=== PATIENT | female | born 1940 | race Caucasian/White ===

== ENCOUNTER → 2021-01-23 17:31 | Outpatient (BNVA) | payer MEDICARE, BC, SELFPAY | PROVIDERS: PCP Family Medicine; Visit Provider Family Medicine | DX: E11.9 Type 2 diabetes mellitus without complications (principal); I10 Essential (primary) hypertension; E78.2 Mixed hyperlipidemia; E55.9 Vitamin D deficiency, unspecified | CPT/HCPCS: 80053; 80061; 82306; 83036; 84443; 85025 ==

== ENCOUNTER → 2023-05-09 18:00 | Outpatient (BNVA) | payer MEDICARE, BC, SELFPAY | PROVIDERS: PCP Family Medicine; Visit Provider Family Medicine | DX: I10 Essential (primary) hypertension (principal); E11.9 Type 2 diabetes mellitus without complications | CPT/HCPCS: 80053; 80061; 83036; 84443 ==

== ENCOUNTER 2023-07-08 23:21 | Observation (INO) | payer MEDICARE, BC, SELFPAY ==
[2023-07-08 23:26] VITALS: BP 115/74; PULSE 94; RESP 17; TEMP 36.8; O2SAT 94; BMI 26.2
--- NOTE | 2023-07-09 00:28 | CTR_ITS ---
PROCEDURE INFORMATION: Exam: CT Head Without Contrast Exam date and time: 07/09/2023 12:41 AM Age: 82 years old Clinical indication: Dizziness; Additional info: Headache, dizziness TECHNIQUE: Imaging protocol: Computed tomography of the head without contrast. Radiation optimization: All CT scans at this facility use at least one of these dose optimization techniques: automated exposure control; mA and/or kV adjustment per patient size (includes targeted exams where dose is matched to clinical indication); or iterative reconstruction. REPORTING DATA: Count of CT and Cardiac NM exams in prior 12 months: This patient has received 0 known CTs and 0 known cardiac nuclear medicine studies in the 12 months prior to the current study. COMPARISON: No relevant prior studies available. RADIATION DOSE METRICS: Total DLP (mGy-cm): 1033.38 FINDINGS: Brain: Left occipital lobe infarct with serpiginous hyperdensities within the infarction which may represent petechial hemorrhage. Subcortical and periventricular white matter changes consistent with small-vessel ischemic disease in the appropriate clinical setting. Small-vessel ischemic disease. Cerebral ventricles: No ventriculomegaly. Paranasal sinuses: Visualized sinuses are unremarkable. No fluid levels. Mastoid air cells: Visualized mastoid air cells are well aerated. Bones/joints: Unremarkable. No acute fracture. Soft tissues: Unremarkable. CT/CT head wo con* [id number] IMPRESSION: 1. Left occipital lobe infarct with serpiginous hyperdensities within the infarction which may represent petechial hemorrhage. 2. Small-vessel ischemic disease.
--- NOTE | 2023-07-09 00:30 | W.ED.AMS ---
HPI - Altered Mental Status General: Chief Complaint: Altered Mental Status Stated Complaint: stroke like symtoms Time Seen by Provider: 07/08/23 23:41 History of Present Illness: Patient presents to the ER with complaints of dizziness having spells and off-balance headaches. Patient said that her head hurts and is has been going on since Saturday of the night she cannot remember much patient states her parent had these headaches as well. Patient appeared to have a hard time describing her symptoms. As well as hold on a conversation in a logical manner. Review of Systems General: Reports: 10 or more systems reviewed and unremarkable except in HPI and below PFSH ED PFSH: Medical History Hyperlipemia Hypertension Type 2 diabetes mellitus Social History Smoking and tobacco status: never smoked Alcohol intake: never Substance/Drug Use: never Marital status: / Physical Exam Const: COMMON NORMALS: no acute distress, average body habitus, patient oriented x3, no limitations, healthy appearing, alert and well nourished HENMT: COMMON NORMALS: normocephalic, atraumatic, hearing grossly normal bilaterally, external ears normal, Normal external nose present, moist oral mucous membranes and oropharynx normal HEAD & SCALP: normocephalic and atraumatic NOSE: Normal external nose present EXTERNAL EAR: Yes external ears normal Eye: COMMON NORMALS: Equal, round and reactive pupils present, EOMs intact bilaterally, conjunctivae normal and no scleral icterus CONJUNCTIVA: Yes conjunctivae normal PUPIL: Yes Equal, round and reactive pupils present Neck/C-Spine: COMMON NORMALS: full ROM, no lymphadenopathy, supple, no meningeal signs, no JVD and Thyroid normal THYROID: Thyroid normal Lymph: LYMPHATIC: no lymphadenopathy noted Chest: COMMONS NORMALS: normal inspection of the chest and normal palpation of entire chest wall Resp: COMMON NORMALS: normal respiratory effort, No retractions, No use of accessory muscles and clear to auscultation bilaterally AUSCULTATION: clear to auscultation bilaterally Cardio: COMMON NORMALS: no JVD, regular rate, regular rhythm, S1 normal heart sound present, S2 normal heart sound present, No gallops present (Cardio), No clicks present (Cardio), No murmurs present (Cardio) and No rub (Cardio) RATE: regular rate RHYTHM: regular rhythm HEART SOUNDS: S1 normal heart sound present and S2 normal heart sound present GI: COMMON NORMALS: Normal to inspection, nondistended, normoactive bowel sounds present, Soft to palpation, non-tender, No hepatosplenomegaly present and no masses PALPATION: Yes Soft to palpation and Yes No hepatosplenomegaly present : COMMON NORMALS: Yes no CVA tenderness BLADDER/KIDNEY EXAM: Yes no CVA tenderness Back/Pelvis: COMMON NORMALS: no CVA tenderness Neuro: COMMON NORMALS: patient oriented x3 SENSORIUM/ORIENTATION: Yes alert MENINGEAL SIGNS: Yes no meningeal signs Course Vital Signs: Vital signs: Vital Signs Temperature 98.2 F 07/08/23 23:26 Pulse Rate 94 07/08/23 23:26 Respiratory Rate 17 07/08/23 23:26 Blood Pressure 115/74 07/08/23 23:26 Pulse Oximetry 94 07/08/23 23:26 Oxygen Delivery Me thod Room Air 07/08/23 23:26 MDM - Altered Mental Status Medical Decision Making Patient presents to the ER with dizziness spells and headache intermittently over the last couple days and multiple times before then. Patient was worked up with a EKG that showed atrial fibrillation patient is on [address] showed left occipital lobe infarct with possible petechial hemorrhage. Differential Diagnosis Likely altered mental status; Unlikely alcoholic intoxication, delirium, dementia, hypoglycemia, hyponatremia, subarachnoid hemorrhage or sepsis Medical Records I reviewed the patient's medical records. Lab Data I reviewed the patient's lab results. Radiology Impressions Head CT 07/09/23 00:28 IMPRESSION: 1. Left occipital lobe infarct with serpiginous hyperdensities within the infarction which may represent petechial hemorrhage. 2. Small-vessel ischemic disease. ADDENDUM: 07/09/23 0132 THIS REPORT CONTAINS FINDINGS THAT MAY BE CRITICAL TO PATIENT CARE. The findings were verbally communicated via telephone conference with Alpesh Jackson at 1:31 AM CDT on 07/09/2023. The findings were acknowledged and understood. Laboratory Results Urine Color Yellow (Yellow) 07/09/23 00:35 Urine Appearance Hazy (CLEAR) A 07/09/23 00:35 Urine pH 5 (5-7) 07/09/23 00:35 Ur Specific [place] 1.020 (1.005-1.030) 07/09/23 00:35 Urine Protein 1+ (Negative) H 07/09/23 00:35 Urine Glucose (UA) Norm (Normal) 07/09/23 00:35 Urine Ketones Negative (Negative) 07/09/23 00:35 Urine Blood Neg (Negative) 07/09/23 00:35 Urine Nitrate Negative (Negative) 07/09/23 00:35 Urine Bilirubin Neg (Negative) 07/09/23 00:35 Urine Urobilinogen 1 mg/dL (Negative) H 07/09/23 00:35 Ur Leukocyte Esterase Negative (Negative) 07/09/23 00:35 Urine RBC None /hpf (0-2) 07/09/23 00:35 Urine WBC None /hpf (0-5) 07/09/23 00:35 Ur Squamous Epith Cells 15-25 /hpf (0-5) H 07/09/23 00:35 Amorphous Sediment 1+ /hpf 07/09/23 00:35 Urine Bacteria 1+ /hpf (NONE) H 07/09/23 00:35 Urine Mucus 2+ /hpf 07/09/23 00:35 All radiology interpretation(s) finalized by discharge EKG Data EKG 1: I personally reviewed and interpreted this EKG as follows: EKG interpretation date: 07/09/23 EKG interpretation time: 01:27 Prior EKG tracings: not available for review Interpretation: EKG showed ventricular rate 77 bpm, QRS duration 100, QTc of 405, atrial fibrillation, right incomplete bundle branch block. Discharge Plan Discharge Patient Disposition: Placed in Observation Clinical Impression: Occipital stroke Altered mental status Qualifiers: Altered mental status type: unspecified Qualified Code(s): R41.82 - Altered mental status, unspecified Atrial fibrillation Qualifiers: Atrial fibrillation type: unspecified Qualified Code(s): I48.91 - Unspecified atrial fibrillation Coding Level of Care Code ED [employer] for [facility]
[2023-07-09 01:09] LABS: Add Urine Culture? No; Add Urine Microscopic? YES; Amorphous Sediment Urine 1+ /hpf; Bacteria Urine 1+ /hpf; Bilirubin Urine Neg (Negative); Blood Urine Neg (Negative); Glucose Urine UA Norm (Normal); Ketones Urine Negative (Negative); Leukocyte Esterase Urine Negative (Negative); Mucus Urine 2+ /hpf; Nitrate Urine Negative (Negative); Protein Urine 1+ (Negative); Squamous Epithelial Cell Urine 15-25 /hpf (0-5); Urine Appearance Hazy (CLEAR); Urine Color Yellow (Yellow); Urobilinogen Urine 1 mg/dL (Negative); pH Urine 5 (5-7)
--- NOTE | 2023-07-09 01:25 | ECG_ITS ---
[facility] Test Date: 2023-07-09 Pat Name: Adri Gonzalez Department: Room: Gender: Female Graduate Recruiter: : 1940 Requested By: Alpesh Major Order Number: [id number] Raven MD: Nahum Magallanes M.D. Measurements Intervals [place] Rate: 87 P: 0 MI: 0 QRS: 73 QRSD: 97 T: 63 QT: 341 QTc: 412 Interpretive Statements ATRIAL FIBRILLATION WITH ABERRANT CONDUCTION OR VENTRICULAR PREMATURE COMPLEXES INCOMPLETE RIGHT BUNDLE BRANCH BLOCK [90+ ms QRS DURATION, TERMINAL R IN V1/V2, 40+ ms S IN I/aVL/V4/V5/V6] NONSPECIFIC T-WAVE ABNORMALITY No previous ECG available for comparison Electronically Signed On 07-09-2023 9:14:57 CDT by Nahum Magallanes M.D. [email or web address]
[2023-07-09 02:00] VITALS: BP 117/77; PULSE 71; RESP 16; O2SAT 96
[2023-07-09 02:04] LABS: Erythrocyte Sedimentation Rate 4 mm/hr (0-15)
[2023-07-09 02:05] LABS: Basophils # 0.1 10^3/uL (0.0-0.1); Basophils % 0.8 %; Eosinophils # 0.2 10^3/uL (0.0-0.8); Eosinophils % 1.5 %; Hematocrit 48.7 % (36-47); Lymphocytes # 2.9 10^3/uL (0.8-4.8); Mean Corpuscular HGB Conc 33.9 g/dL (30-55); Mean Corpuscular Hemoglobin 31.7 pg (27-33); Mean Corpuscular Volume 93.5 fl (85-98); Mean Platelet Volume 9.5 fL (7.4-10.4); Monocytes # 0.9 10^3/uL (0.2-0.9); Monocytes % 7.9 %; Neutrophils # 7.03 10^3/uL (1.8-7.7); Neutrophils % 63.5 %; Nucleated Red Blood Cells % 0 %; Platelet Count 250 10^3/cmm (157-399); Red Blood Count 5.21 10^6/uL (3.85-5.65); Red Cell Distribution Width 12.3 % (12.1-15.1); White Blood Count 11.08 10^3/uL (3.29-11.43)
[2023-07-09 02:16] LABS: Alanine Aminotransferase 15 U/L (0-33); Albumin Level 4.4 g/dL (3.5-5.2); Alkaline Phosphatase 97 U/L (35-105); Anion Gap 16.4 (5-19); Aspartate Amino Transferase 19 U/L (0-32); Blood Urea Nitrogen 22 mg/dL (8-23); Calcium 9.6 mg/dL (8.5-10.5); Carbon Dioxide 29 mmol/L (22-29); Chloride 93 mmol/L (98-107); Globulin 3.6 g/dL (1.3-4.6); Glucose 163 mg/dL (65-115); Magnesium 1.9 mg/dL (1.7-2.3); Osmolality Calculated 287 mOsm/kg (285-295); Potassium 3.4 mmol/L (3.5-5.1); Sodium 135 mmol/L (136-145); Total Bilirubin 0.7 mg/dL (0.15-1.2)
[2023-07-09 02:41] VITALS: BP 117/77; PULSE 71; RESP 16; TEMP 36.8; O2SAT 96
[2023-07-09 03:00] VITALS: BP 108/75; PULSE 76; RESP 17; TEMP 36.4; O2SAT 93
--- NOTE | 2023-07-09 03:48 | PM.HP ---
Providers/Chief Complaint Admitting Physician: Shahida David MD Primary Care Provider: Yeni Pimentel MD Chief Complaint: stroke like symtoms History of Present Illness Adri Gonzalez is a 82 year old female with history of hypertension diabetes presented with complaint of headache and feeling funky /dizzy spells for 2 days. She denied any fever cold cough chest pain shortness of breath urinary or bowel complaints. No history of sick contacts or recent travel. In the ER she was found to have left occipital infarct with minimal hemorrhage of unknown duration on CT head as per the radiologist. Review of Systems Narrative: As per HPI Medications/Allergies Home Medications Medication Instructions Recorded Confirmed Last Taken Type aspirin 81 mg tablet,delayed 81 mg PO DAILY 03/10/20 10/07/22 Unknown History release (Adult Low Dose Aspirin) blood sugar diagnostic (Blood #50 ea 01/17/22 10/07/22 Unknown Rx Glucose Test strips) blood-glucose meter #1 ea 01/17/22 10/07/22 Unknown Rx empagliflozin 10 mg tablet 10 mg PO QAM #90 tabs 01/17/22 10/07/22 Unknown Rx (Jardiance) lancets 30 gauge (Advanced Travel #100 ea 01/17/22 10/07/22 Unknown Rx Lancets) amlodipine 5 mg tablet See Rx Instructions .Route 05/09/23 05/09/23 Unknown Rx .COMPLEX #30 tabs hydrochlorothiazide 25 mg tablet See Rx Instructions .Route 05/09/23 05/09/23 Unknown Rx .COMPLEX #30 tabs losartan 100 mg tablet See Rx Instructions .Route 05/09/23 05/09/23 Unknown Rx .COMPLEX #30 tabs metformin 500 mg tablet,extended See Rx Instructions .Route 05/09/23 05/09/23 Unknown Rx release 24 hr .COMPLEX #120 tabs metoprolol succinate 50 mg See Rx Instructions .Route 05/09/23 05/09/23 Unknown Rx tablet,extended release 24 hr .COMPLEX #30 tabs Allergies Allergy/AdvReac Type Severity Reaction Status Date / Time No Known Allergies Allergy Verified 05/09/23 16:14 PFSH Acute PFSH: Medical History Hyperlipemia Hypertension Type 2 diabetes mellitus Social History Smoking and tobacco status: never smoked Alcohol intake: never Substance/Drug Use: never Marital status: / Vitals/I&O/Wt Last Vital Signs Temp 98.2 F 07/09/23 02:41 Pulse 71 07/09/23 02:41 Resp 16 07/09/23 02:41 BP 117/77 07/09/23 02:41 Pulse Ox 96 07/09/23 02:41 O2 Del Method Room Air 07/09/23 03:00 Weight last 48 hrs Weight 75.75 kg Physical Exam Narrative: She is alert awake oriented x3 not in acute distress Chest clear to auscultation bilaterally Cardiovascular normal heart sounds Abdomen NAD Extremities trace bilateral edema present Neurological exam normal Data 07/09/23 01:47 07/09/23 01:47 CT Head: Radiologist's impression: IMPRESSION: 1. ? Left occipital lobe infarct with serpiginous hyperdensities within the infarction which may represent petechial hemorrhage. 2. ? Small-vessel ischemic disease. EKG 1: Administrative Processor Interpretation: ATRIAL FIBRILLATION WITH ABERRANT CONDUCTION OR VENTRICULAR PREMATURE COMPLEXES INCOMPLETE RIGHT BUNDLE BRANCH BLOCK? [90+ ms QRS DURATION, TERMINAL R IN V1/V2, 40+ ms S IN I/aVL/V4/V5/V6] NONSPECIFIC T-WAVE ABNORMALITY ABNORMAL RHYTHM ECG A&P Assessment and plan (1) Cerebrovascular accident: (2) Headache: Plan 82-year-old female with history of hypertension diabetes presented with complaint of feeling funky and headache since 2 days and found to have left occipital infarct on CT head. Admit for observation Neurology consult in a.m. Continue aspirin 81 mg for now Resume home medications IV Pepcid 20 mg every 12 hours for stress ulcer prophylaxis Intermittent compression stockings for DVT prophylaxis She is full code for now Attestations Medical Necessity Statement*: She is here for observation and neurology consult for left occipital infarct of unknown duration Time Spent in Patient Care: 30 minutes Coding Level of Care Code Acute Code for [facility] Fwd Diagnoses Cerebrovascular accident I63.9 Headache R51.9 Time Spent (min) 30
[2023-07-09] MEDS: sodium chloride 0.9% 1,000 ML 60 ML IV (05:14)
[2023-07-09] MEDS: famotidine 20 mg/2 mL INJ IVP (05:14)
[2023-07-09 07:45] VITALS: BP 97/63; PULSE 71; RESP 20; TEMP 36.1; O2SAT 96
--- NOTE | 2023-07-09 08:29 | PC.PHAR ---
pt states she takes care of her own medications-pt states she is still taking metformin er 500mg 2 tabs bid ext shows last filled 05/09/23 30d/s
--- NOTE | 2023-07-09 10:50 | P.DS_ITS ---
Discharge Providers Date of Admission: 07/09/23 01:53 Date of Discharge: July 09, 2023 Attending Provider at Admission: Shahida David MD Attending Provider at Discharge: Shahida David MD Primary Care Provider: Yeni Pimentel MD Diagnoses at Discharge Discharge Diagnosis (1) Cerebrovascular accident: Status: Acute (2) Headache: Status: Acute Reason for Visit Reason for Visit: stroke like symtoms Hospital Course Hospital Course 82-year female who presented from home in the ER she was diagnosed with left occipital lobe infarct with petechial hemorrhage small vessel ischemic changes, patient has not suffered from any focal deficit, she is able to walk, no dysarthria, she is able to swallow without any difficulty she will get prescription to get physical therapy outpatient Currently on consistent carb diet She is not a candidate to be on aspirin, discontinue antihypertensive regimen. Physical Exam Narrative: Awake and alert Nonfocal neuro exam Pleasant and cooperative S1, S2 doing Well on room air Abdomen is soft Discharge Data Studies Completed and Pending Completed Studies During Hospitalization Category Date Time Status CT head wo con* [id number] Stat Cat Scan 07/09/23 00:28 Completed Pending at discharge Category Date Time Status Complete Blood Count w/Auto AM LABS Lab 07/10/23 04:00 Ordered Comprehensive Metabolic Panel AM LABS Lab 07/10/23 04:00 Ordered Magnesium AM LABS Lab 07/10/23 04:00 Ordered Phosphorus AM LABS Lab 07/10/23 04:00 Ordered Radiology Impressions Head CT 07/09/23 00:28 IMPRESSION: 1. Left occipital lobe infarct with serpiginous hyperdensities within the infarction which may represent petechial hemorrhage. 2. Small-vessel ischemic disease. ADDENDUM: 07/09/23 0132 THIS REPORT CONTAINS FINDINGS THAT MAY BE CRITICAL TO PATIENT CARE. The findings were verbally communicated via telephone conference with Alpesh Jackson at 1:31 AM CDT on 07/09/2023. The findings were acknowledged and understood. Laboratory Results WBC 11.08 10^3/uL (3.29-11.43) 07/09/23 01:47 RBC 5.21 10^6/uL (3.85-5.65) 07/09/23 01:47 Hgb 16.50 g/dL (11.27-16.99) 07/09/23 01:47 Hct 48.7 % (36-47) H 07/09/23 01:47 MCV 93.5 fl (85-98) 07/09/23 01:47 MCH 31.7 pg (27-33) 07/09/23 01:47 MCHC 33.9 g/dL (30-55) 07/09/23 01:47 RDW 12.3 % (12.1-15.1) 07/09/23 01:47 Plt Count 250 10^3/cmm (157-399) 07/09/23 01:47 MPV 9.5 fL (7.4-10.4) 07/09/23 01:47 Neut % (Auto) 63.5 % 07/09/23 01:47 Lymph % (Auto) 26.0 % 07/09/23 01:47 [place] % (Auto) 7.9 % 07/09/23 01:47 Eos % (Auto) 1.5 % 07/09/23 01:47 Baso % (Auto) 0.8 % 07/09/23 01:47 Neut # (Auto) 7.03 10^3/uL (1.8-7.7) 07/09/23 01:47 Lymph # (Auto) 2.9 10^3/uL (0.8-4.8) 07/09/23 01:47 [place] # (Auto) 0.9 10^3/uL (0.2-0.9) 07/09/23 01:47 Eos # (Auto) 0.2 10^3/uL (0.0-0.8) 07/09/23 01:47 Baso # (Auto) 0.1 10^3/uL (0.0-0.1) 07/09/23 01:47 Nucleated RBC % (auto) 0 % 07/09/23 01:47 Nucleated RBCs # 0.0 /100WBC 07/09/23 01:47 ESR 4 mm/hr (0-15) 07/09/23 01:47 Sodium 135 mmol/L (136-145) L 07/09/23 01:47 Potassium 3.4 mmol/L (3.5-5.1) L 07/09/23 01:47 Chloride 93 mmol/L (98-107) L 07/09/23 01:47 Carbon Dioxide 29 mmol/L (22-29) 07/09/23 01:47 Anion Gap 16.4 (5-19) 07/09/23 01:47 BUN 22 mg/dL (8-23) 07/09/23 01:47 Creatinine 1.1 mg/dL (0.5-0.9) H 07/09/23 01:47 GFR Calculation Not Reportable 07/09/23 01:47 Glucose 163 mg/dL (65-115) H 07/09/23 01:47 Calculated Osmolality 287 mOsm/kg (285-295) 07/09/23 01:47 Calcium 9.6 mg/dL (8.5-10.5) 07/09/23 01:47 Magnesium 1.9 mg/dL (1.7-2.3) 07/09/23 01:47 Total Bilirubin 0.7 mg/dL (0.15-1.2) 07/09/23 01:47 AST 19 U/L (0-32) 07/09/23 01:47 ALT 15 U/L (0-33) 07/09/23 01:47 Alkaline Phosphatase 97 U/L (35-105) 07/09/23 01:47 C-Reactive Protein 3.0 mg/L (0.0-4.9) 07/09/23 01:47 Total Protein 8.0 g/dL (6.6-8.7) 07/09/23 01:47 Albumin 4.4 g/dL (3.5-5.2) 07/09/23 01:47 Globulin 3.6 g/dL (1.3-4.6) 07/09/23 01:47 Urine Color Yellow (Yellow) 07/09/23 00:35 Urine Appearance Hazy (CLEAR) A 07/09/23 00:35 Urine pH 5 (5-7) 07/09/23 00:35 Ur Specific [place] 1.020 (1.005-1.030) 07/09/23 00:35 Urine Protein 1+ (Negative) H 07/09/23 00:35 Urine Glucose (UA) Norm (Normal) 07/09/23 00:35 Urine Ketones Negative (Negative) 07/09/23 00:35 Urine Blood Neg (Negative) 07/09/23 00:35 Urine Nitrate Negative (Negative) 07/09/23 00:35 Urine Bilirubin Neg (Negative) 07/09/23 00:35 Urine Urobilinogen 1 mg/dL (Negative) H 07/09/23 00:35 Ur Leukocyte Esterase Negative (Negative) 07/09/23 00:35 Urine RBC None /hpf (0-2) 07/09/23 00:35 Urine WBC None /hpf (0-5) 07/09/23 00:35 Ur Squamous Epith Cells 15-25 /hpf (0-5) H 07/09/23 00:35 Amorphous Sediment 1+ /hpf 07/09/23 00:35 Urine Bacteria 1+ /hpf (NONE) H 07/09/23 00:35 Urine Mucus 2+ /hpf 07/09/23 00:35 Vitals Last Vital Signs Temp 97.0 F L 07/09/23 07:45 Pulse 71 07/09/23 07:45 Resp 20 H 07/09/23 07:45 BP 97/63 07/09/23 07:45 Pulse Ox 96 07/09/23 07:45 O2 Del Method Room Air 07/09/23 07:45 Discharge Plan Discharge Patient Disposition: Home Condition: Stable Prescriptions: Continued (DME) blood-glucose meter Misc See Rx Instructions .Route Qty: 1 0RF Rx Instructions: As directed (DME) lancets [Advanced Travel Lancets] 30 gauge misc See Rx Instructions .Route Qty: 100 1RF Rx Instructions: As directed (DME) Blood Glucose Test Strip See Rx Instructions .Route Qty: 50 2RF Rx Instructions: As directed metoprolol succinate 50 mg tablet extended release 24 hr 50 mg PO DAILY Held amlodipine 5 mg tablet 5 mg PO QAM Hold Instructions: Resume on 07/15/23. hydrochlorothiazide 25 mg tablet 25 mg PO QAM Hold Instructions: Resume on 07/13/23. losartan 100 mg tablet 100 mg PO QAM Hold Instructions: Resume on 07/13/23. Discontinued aspirin [Adult Low Dose Aspirin] 81 mg tablet,delayed release (DR/EC) 81 mg PO QAM metformin 500 mg tablet extended release 24 hr 1,000 mg PO BID Discharge Orders: Discharge Order (Routine); Ordered 07/09/23 Ordered By: Caitie Peterson Other Ambulatory Orders: Physical Therapy Eval and Treat Outpatient (Order) Timeframe: 3 Weeks Facility: [facility] - Location: Physical Therapy Ordered By: Caitie Peterson Referrals: Nasir Garnett MD [Physician] - 2 weeks Yeni Pimentel MD [Primary Care Provider] - Discharge Diet: Cardiac Discharge Activity: As per PT/OT instructions Patient Instructions: Stroke (GEN), Opioid Safety, Stroke Stoplight Discharge Attestations Time Spent in Discharge Care*: greater than 30 min Quality Metrics Clinical Quality Measures [ No reported AMI, CVA or VTE this stay] Coding Level of Care Code Acute Code for [facility] Fwd Diagnoses Cerebrovascular accident I63.9 Headache R51.9
--- NOTE | 2023-07-09 11:35 | PC.NURSE ---
Notified Arnold patient was being discharged. Arnold stated would be here in one hour.
--- NOTE | 2023-07-09 11:59 | PC.NURSE ---
Discussed discharge paperwork with patient, follow up appointments with calling after two business days if patient has not heard anything from clinics. Discussed and circled discontinued medications. Underlined held medications and discussed resume dates. Patient verbalized understading and will let son know upon arrival to pick patient up.
[2023-07-09 12:00] VITALS: BP 107/67; PULSE 70; RESP 18; TEMP 36.5; O2SAT 93
[2023-07-09 12:19] LABS: Estmated Average Glucose 192; Hemoglobin A1C 8.3 % (4.0-6.0)
[2023-07-09 13:54] VITALS: BP 107/67; PULSE 70; RESP 18; TEMP 36.5; O2SAT 93
== END 2023-07-09 11:55 | disposition home or self-care (01) ==
LOC: ER 07-09 01:53 → MEDSURG 07-09 02:21
PROVIDERS: Internal Medicine; Admitting Provider Internal Medicine; Emergency Provider Emergency Medicine; PCP Family Medicine; Visit Provider Internal Medicine
DX: I63.9 Cerebral infarction, unspecified (principal); R51.9 Headache, unspecified; Z79.82 Long term (current) use of aspirin; E78.5 Hyperlipidemia, unspecified; I10 Essential (primary) hypertension; E11.9 Type 2 diabetes mellitus without complications; I45.10 Unspecified right bundle-branch block
CPT/HCPCS: 36415; 70450; 80053; 81001; 83036; 83735; 85025; 85651; 86140; 93005; 96361; 96374; 99285; G0378; J3490; J7030

== ENCOUNTER 2023-07-25 06:00 | Outpatient (RCR) | payer MEDICARE, BC, SELFPAY | END 2023-07-30 23:59 | disposition home or self-care (01) | LOC: TPT 06:00 | PROVIDERS: PCP Family Medicine; Visit Provider Internal Medicine | DX: I63.9 Cerebral infarction, unspecified (principal) | CPT/HCPCS: 97163 ==

== ENCOUNTER → 2023-11-21 08:29 | Outpatient (BNVA) | payer MEDICARE, BC, SELFPAY | PROVIDERS: PCP Family Medicine; Visit Provider Nurse Practitioner Family | DX: R50.9 Fever, unspecified (principal) | CPT/HCPCS: 81003; 87400; 87426 ==

== ENCOUNTER → 2023-11-25 10:58 | Outpatient (BNVA) | payer MEDICARE, BC, SELFPAY | PROVIDERS: PCP Family Medicine; Visit Provider Nurse Practitioner Family | DX: I34.1 Nonrheumatic mitral (valve) prolapse (principal); R60.0 Localized edema; E11.9 Type 2 diabetes mellitus without complications; E55.9 Vitamin D deficiency, unspecified | CPT/HCPCS: 80053; 82306; 82607; 83036; 83735; 83880; 84443; 85025 ==

== ENCOUNTER 2024-04-04 04:46 | Emergency (ER) | payer MEDICARE, BC, SELFPAY ==
[2024-04-04 04:47] VITALS: BP 133/87; PULSE 98; RESP 20; TEMP 36.6; O2SAT 90; BMI 25.0
[2024-04-04 04:56] VITALS: BP 133/87; PULSE 77; RESP 16; O2SAT 98
[2024-04-04 05:05] LABS: Basophils # 0.1 10^3/uL (0.0-0.1); Basophils % 0.7 %; Eosinophils # 0.4 10^3/uL (0.0-0.8); Eosinophils % 4.3 %; Hematocrit 39.3 % (36-47); Lymphocytes % 19.5 %; Mean Corpuscular HGB Conc 34.1 g/dL (30-55); Mean Corpuscular Hemoglobin 30.9 pg (27-33); Mean Corpuscular Volume 90.8 fl (85-98); Mean Platelet Volume 11.4 fL (7.4-10.4); Monocytes # 0.9 10^3/uL (0.2-0.9); Monocytes % 8.4 %; Neutrophils # 6.73 10^3/uL (1.8-7.7); Neutrophils % 66.4 %; Nucleated Red Blood Cells % 0 %; Platelet Count 204 10^3/cmm (157-399); Red Blood Count 4.33 10^6/uL (3.85-5.65); Red Cell Distribution Width 12.7 % (12.1-15.1); White Blood Count 10.14 10^3/uL (3.29-11.43)
[2024-04-04 05:14] LABS: Ketone (Acetest) Serum Negative (Negative)
--- NOTE | 2024-04-04 05:14 | XRR_ITS ---
PROCEDURE INFORMATION: Exam: XR Abdomen Exam date and time: 04/04/2024 5:18 AM Age: 83 years old Clinical indication: Bloating; Abdominal pain; Generalized; Patient HX: C/O diffuse abd pain with distention; Additional info: Abd distension TECHNIQUE: Imaging protocol: Radiologic exam of the abdomen. Views: Frontal supine view of the abdomen. 1 View. COMPARISON: No relevant prior studies available. FINDINGS: Gastrointestinal tract: No dilated loops of large or small bowel is appreciated. There is a moderate amount of stool within the colon. No pathologic calcifications are appreciated. Bones/joints: There is a scoliotic curvature convex left. There are degenerative changes involving the spine. XR/XR abdomen 1V* [id number] IMPRESSION: 1. Fecal stasis.
--- NOTE | 2024-04-04 05:27 | ED_ITS ---
HPI - Abdominal Pain 2 General: Chief Complaint: Abdominal Pain Stated Complaint: hyperglycemia Time Seen by Provider: 04/04/24 05:08 History of Present Illness: Patient presents to the ER with a complaint of a blood sugar of greater than 500 and abdominal distention. Patient says her abdominal abdomen is not hurting. But her blood sugar has been high. Patient was arrived by ambulance and they reported a blood sugar greater than 500 after they gave her 600 mL normal saline. Patient is a wev-mkuccka-fnygrdbmd diabetic. Patient says she has no problems with her bowels and goes to the bathroom every day. Patient does admit to being bloated. Patient has no other complaints at this time. Review of Systems 2 General: Reports: 10 or more systems reviewed and unremarkable except in HPI and below PFSH ED 2 PFSH: Medical History MVP (mitral valve prolapse) Headache Cerebrovascular accident Atrial fibrillation Altered mental status Occipital stroke Type 2 diabetes mellitus Hyperlipemia Hypertension Social History Smoking and tobacco/nicotine status: never used tobacco/nicotine Alcohol intake: never Substance/Drug Use: never Marital status: / Physical Exam 2 Const: COMMON NORMALS: no acute distress, average body habitus, patient oriented x3, no limitations, healthy appearing, alert and well nourished HENMT: COMMON NORMALS: normocephalic, atraumatic, hearing grossly normal bilaterally, external ears normal, Normal external nose present and moist oral mucous membranes HEAD & SCALP: normocephalic and atraumatic NOSE: Normal external nose present EXTERNAL EAR: Yes external ears normal Neck/C-Spine: COMMON NORMALS: no JVD Chest: COMMONS NORMALS: normal inspection of the chest and normal palpation of entire chest wall Resp: COMMON NORMALS: normal respiratory effort, No retractions, No use of accessory muscles and clear to auscultation bilaterally AUSCULTATION: clear to auscultation bilaterally Cardio: COMMON NORMALS: no JVD, S1 normal heart sound present, S2 normal heart sound present, No gallops present (Cardio), No clicks present (Cardio), No murmurs present (Cardio) and No rub (Cardio); negative for regular rhythm (Irregularly irregular) RHYTHM: abnormal rhythm (Irregularly irregular) HEART SOUNDS: S1 normal heart sound present and S2 normal heart sound present GI: COMMON NORMALS: Soft to palpation, non-tender, No hepatosplenomegaly present and no masses; negative for Normal to inspection, nondistended, normoactive bowel sounds present (Mildly distended soft normal active bowel sounds) PALPATION: Yes Soft to palpation and Yes No hepatosplenomegaly present Neuro: COMMON NORMALS: patient oriented x3 SENSORIUM/ORIENTATION: Yes alert Course 2 Vital Signs: Vital signs: Vital Signs Temperature 97.8 F 04/04/24 04:47 Pulse Rate 84 04/04/24 10:09 Respiratory Rate 18 04/04/24 12:44 Blood Pressure 106/72 04/04/24 07:55 Pulse Oximetry 94 04/04/24 10:09 Oxygen Delivery Me thod Room Air 04/04/24 10:09 Oxygen Flow Rate 2 04/04/24 04:56 MDM - Abdominal Pain Medical Decision Making Patient presented to the ER in with hyperglycemia was resolving using IV insulin fluid. Abdomen x-ray showed fecal stasis, white count was normal, blood glucose improved down to 313, BNP was slightly high at 1623, urine showed 4+ glucose, patient care transferred over to Dr. Zimmerman at shift change Differential Diagnosis Likely abdominal pain Medical Records I reviewed the patient's medical records. Lab Data I reviewed the patient's lab results. 04/04/24 04:53 04/04/24 04:53 Labs/Radiology: Radiology Impressions Abdomen X-Ray 04/04/24 05:14 IMPRESSION: 1. Fecal stasis. Laboratory Results WBC 10.14 10^3/uL (3.29-11.43) 04/04/24 04:53 RBC 4.33 10^6/uL (3.85-5.65) 04/04/24 04:53 Hgb 13.40 g/dL (11.27-16.99) 04/04/24 04:53 Hct 39.3 % (36-47) 04/04/24 04:53 MCV 90.8 fl (85-98) 04/04/24 04:53 MCH 30.9 pg (27-33) 04/04/24 04:53 MCHC 34.1 g/dL (30-55) 04/04/24 04:53 RDW 12.7 % (12.1-15.1) 04/04/24 04:53 Plt Count 204 10^3/cmm (157-399) 04/04/24 04:53 MPV 11.4 fL (7.4-10.4) H 04/04/24 04:53 Neut % (Auto) 66.4 % 04/04/24 04:53 Lymph % (Auto) 19.5 % 04/04/24 04:53 [place] % (Auto) 8.4 % 04/04/24 04:53 Eos % (Auto) 4.3 % 04/04/24 04:53 Baso % (Auto) 0.7 % 04/04/24 04:53 Neut # (Auto) 6.73 10^3/uL (1.8-7.7) 04/04/24 04:53 Lymph # (Auto) 2.0 10^3/uL (0.8-4.8) 04/04/24 04:53 [place] # (Auto) 0.9 10^3/uL (0.2-0.9) 04/04/24 04:53 Eos # (Auto) 0.4 10^3/uL (0.0-0.8) 04/04/24 04:53 Baso # (Auto) 0.1 10^3/uL (0.0-0.1) 04/04/24 04:53 Nucleated RBC % (auto) 0 % 04/04/24 04:53 Nucleated RBCs # 0.0 /100WBC 04/04/24 04:53 Sodium 127 mmol/L (136-145) L 04/04/24 04:53 Potassium 4.5 mmol/L (3.5-5.1) 04/04/24 04:53 Chloride 89 mmol/L (98-107) L 04/04/24 04:53 Carbon Dioxide 24 mmol/L (22-29) 04/04/24 04:53 Anion Gap 18.5 (5-19) 04/04/24 04:53 BUN 34 mg/dL (8-23) H 04/04/24 04:53 Creatinine 1.4 mg/dL (0.5-0.9) H 04/04/24 04:53 GFR Calculation Not Reportable 04/04/24 04:53 Glucose 560 mg/dL (65-115) H* 04/04/24 04:53 POC Glucose 313 mg/dL (70-110) H 04/04/24 11:32 Calculated Osmolality 297 mOsm/kg (285-295) H 04/04/24 04:53 Calcium 8.7 mg/dL (8.5-10.5) 04/04/24 04:53 Magnesium 2.1 mg/dL (1.7-2.3) 04/04/24 04:53 Total Bilirubin 0.4 mg/dL (0.15-1.2) 04/04/24 04:53 AST 20 U/L (0-32) 04/04/24 04:53 ALT 18 U/L (0-33) 04/04/24 04:53 Alkaline Phosphatase 104 U/L (35-105) 04/04/24 04:53 NT-Pro-B Natriuret Pep 1623 pg/mL (0-450) H 04/04/24 04:53 Total Protein 7.1 g/dL (6.6-8.7) 04/04/24 04:53 Albumin 3.5 g/dL (3.5-5.2) 04/04/24 04:53 Globulin 3.6 g/dL (1.3-4.6) 04/04/24 04:53 Lipase 42 U/L (13-60) 04/04/24 04:53 Urine Color Yellow (Yellow) 04/04/24 06:19 Urine Appearance Clear (CLEAR) 04/04/24 06:19 Urine pH 5 (5-7) 04/04/24 06:19 Ur Specific [place] 1.010 (1.005-1.030) 04/04/24 06:19 Urine Protein Neg (Negative) 04/04/24 06:19 Urine Glucose (UA) 4+ (Normal) H 04/04/24 06:19 Urine Ketones Negative (Negative) 04/04/24 06:19 Urine Blood Neg (Negative) 04/04/24 06:19 Urine Nitrate Negative (Negative) 04/04/24 06:19 Urine Bilirubin Neg (Negative) 04/04/24 06:19 Urine Urobilinogen Norm mg/dL (Negative) 04/04/24 06:19 Ur Leukocyte Esterase Negative (Negative) 04/04/24 06:19 Serum Ketones Negative (Negative) 04/04/24 04:53 All radiology interpretation(s) finalized by discharge Discharge Plan Discharge Patient Disposition: Home Clinical Impression: Constipation, Acute hyperglycemia Type 2 diabetes mellitus Qualifiers: 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: without residential use Diabetes mellitus complication status: without complication Qualified Code(s): E11.9 - Type 2 diabetes mellitus without complications Condition: Stable Prescriptions: New Miralax 17 gram powder in packet 17 g PO PRN Qty: 30 0RF No Action (DME) blood-glucose meter Misc See Rx Instructions .Route Qty: 1 0RF Rx Instructions: As directed (DME) lancets [Advanced Travel Lancets] 30 gauge misc See Rx Instructions .Route Qty: 100 1RF Rx Instructions: As directed (DME) Blood Glucose Test Strip See Rx Instructions .Route Qty: 50 2RF Rx Instructions: As directed sulfamethoxazole-trimethoprim [Bactrim DS] 800-160 mg tablet 1 tab PO BID 10 Days Qty: 20 0RF mupirocin calcium 2 % cream 1 applic topical TID Qty: 30 1RF tizanidine 2 mg tablet See Rx Instructions .ROUTE .COMPLEX Qty: 30 0RF Dose Instruction: TAKE ONE TABLET BY MOUTH TWICE DAILY NEEDED FOR muscle spasticity Rx Instructions: TAKE ONE TABLET BY MOUTH TWICE DAILY NEEDED FOR muscle spasticity triamterene-hydrochlorothiazid 37.5-25 mg tablet See Rx Instructions .ROUTE .COMPLEX Qty: 30 2RF Dose Instruction: TAKE ONE TABLET BY MOUTH EVERY MORNING Rx Instructions: TAKE ONE TABLET BY MOUTH EVERY MORNING potassium chloride 10 mEq capsule, extended release See Rx Instructions .ROUTE .COMPLEX Qty: 60 1RF Dose Instruction: TAKE TWO CAPSULES BY MOUTH DAILY Rx Instructions: TAKE TWO CAPSULES BY MOUTH DAILY furosemide 40 mg tablet See Rx Instructions .ROUTE .COMPLEX Qty: 30 2RF Dose Instruction: TAKE ONE TABLET BY MOUTH EVERY MORNING; needs appt FOR further refills Rx Instructions: TAKE ONE TABLET BY MOUTH EVERY MORNING; prn sitagliptin phosphate 50 mg tablet See Rx Instructions .ROUTE .COMPLEX Qty: 30 2RF Dose Instruction: TAKE ONE TABLET BY MOUTH DAILY Rx Instructions: TAKE ONE TABLET BY MOUTH DAILY metoprolol succinate 50 mg tablet extended release 24 hr 50 mg PO DAILY Qty: 30 2RF amlodipine 5 mg tablet 5 mg PO QAM Hold Instructions: Resume on 07/15/23. losartan 100 mg tablet 100 mg PO QAM Hold Instructions: Resume on 07/13/23. Discharge Orders: Discharge ED (Routine); Ordered 04/04/24 Ordered By: Catrina Zimmerman Referrals: Yeni Pimentel MD [Primary Care Provider] - Discharge Diet: Advance as tolerated Discharge Activity: Increase activity as tolerated Patient Instructions: Opioid Safety, Pain Management Activity Restrictions/Additional Instructions: ke sure to take your medications as prescribed. Use the Miralax up to three doses a day for the next 1 - 2 days - until you feel like you have relieved the constipation. After that, you can use it as needed if constipation returns. Coding Level of Care Code ED Pattern Filer for Bishop Carey
[2024-04-04 05:32] LABS: Alanine Aminotransferase 18 U/L (0-33); Albumin Level 3.5 g/dL (3.5-5.2); Alkaline Phosphatase 104 U/L (35-105); Anion Gap 18.5 (5-19); Aspartate Amino Transferase 20 U/L (0-32); Blood Urea Nitrogen 34 mg/dL (8-23); Calcium 8.7 mg/dL (8.5-10.5); Carbon Dioxide 24 mmol/L (22-29); Chloride 89 mmol/L (98-107); Creatinine Clr Calc Pharmacy 32.2749; Globulin 3.6 g/dL (1.3-4.6); Lipase 42 U/L (13-60); Magnesium 2.1 mg/dL (1.7-2.3); NT Pro B Type Natriuretic Pept 1623 pg/mL (0-450); Osmolality Calculated 297 mOsm/kg (285-295); Potassium 4.5 mmol/L (3.5-5.1); Sodium 127 mmol/L (136-145); Total Bilirubin 0.4 mg/dL (0.15-1.2); Total Protein 7.1 g/dL (6.6-8.7)
[2024-04-04 05:35] LABS: Glucose 560 mg/dL (65-115)
[2024-04-04] MEDS: insulin regular-human 100 units/1 mL 10 UNIT IVP ×2 (06:06→07:50)
[2024-04-04 06:14] VITALS: BP 109/69; PULSE 85; RESP 18; O2SAT 94
[2024-04-04 06:26] LABS: Add Urine Microscopic? NO; Charge for UA Resulting for Rev
[2024-04-04 06:37] LABS: Bilirubin Urine Neg (Negative); Blood Urine Neg (Negative); Glucose Urine UA 4+ (Normal); Ketones Urine Negative (Negative); Nitrate Urine Negative (Negative); Protein Urine Neg (Negative); Urine Appearance Clear (CLEAR); Urine Color Yellow (Yellow); pH Urine 5 (5-7)
[2024-04-04 06:38] LABS: Leukocyte Esterase Urine Negative (Negative); Urobilinogen Urine Norm (Negative)
[2024-04-04 07:11] LABS: Glucose Point of Care 385 mg/dL (70-110)
--- NOTE | 2024-04-04 07:11 | PC.NURSE ---
Glucose via Fingerstick @0777: 385; Dr. Zimmerman notified
[2024-04-04 07:55] VITALS: BP 106/72; PULSE 86; O2SAT 96
[2024-04-04 07:55] LABS: Glucose Point of Care 395 mg/dL (70-110)
--- NOTE | 2024-04-04 09:09 | PC.NURSE ---
Glucose via Fingerstick: 354
[2024-04-04 09:41] LABS: Glucose Point of Care 354 mg/dL (70-110)
--- NOTE | 2024-04-04 09:59 | PC.NURSE ---
Pt glucose via fingerstick: 274 @[id number]
[2024-04-04 10:01] LABS: Glucose Point of Care 274 mg/dL (70-110)
[2024-04-04] MEDS: sitagliptin 100 mg Tablet 25 MG PO (10:05)
[2024-04-04 10:09] VITALS: PULSE 84; O2SAT 94
--- NOTE | 2024-04-04 11:32 | PC.NURSE ---
Glucose via fingerstick: 313
[2024-04-04 11:35] LABS: Glucose Point of Care 313 mg/dL (70-110)
[2024-04-04 12:44] VITALS: RESP 18
--- NOTE | 2024-04-04 12:58 | PC.NURSE ---
this nurse called in Miralax prescription per Dr. Zimmerman to [facility] in [place] per family/pt request.
== END 2024-04-04 12:45 | disposition home or self-care (01) ==
PROVIDERS: Emergency Medicine; Emergency Provider Emergency Medicine; PCP Family Medicine
DX: K59.00 Constipation, unspecified (principal); E11.65 Type 2 diabetes mellitus with hyperglycemia; I10 Essential (primary) hypertension; E78.5 Hyperlipidemia, unspecified; I48.91 Unspecified atrial fibrillation; Z79.899 Other long term (current) drug therapy; Z86.73 Personal history of transient ischemic attack (TIA), and cerebral infarction without residual deficits
CPT/HCPCS: 36416; 74018; 80053; 81003; 82009; 82962; 83690; 83735; 83880; 85025; 96374; 96376; 99284; J1815

== ENCOUNTER → 2024-05-04 14:32 | Outpatient (BNVA) | payer MEDICARE, BC, SELFPAY | PROVIDERS: PCP Family Medicine; Visit Provider Podiatrist Foot & Ankle Surgery | DX: L60.3 Nail dystrophy (principal); G62.9 Polyneuropathy, unspecified; R60.0 Localized edema; E11.42 Type 2 diabetes mellitus with diabetic polyneuropathy | CPT/HCPCS: 11721; 99203 ==

== ENCOUNTER → 2024-05-05 14:23 | Outpatient (BNVA) | payer MEDICARE, BC, SELFPAY | PROVIDERS: PCP Family Medicine; Visit Provider Nurse Practitioner Family | DX: E11.9 Type 2 diabetes mellitus without complications (principal) | CPT/HCPCS: 80053; 80061; 82607; 83036; 83735; 84443; 85025 ==

== ENCOUNTER → 2024-10-29 09:51 | Outpatient (BNVA) | payer MEDICARE, BC, SELFPAY | PROVIDERS: PCP Nurse Practitioner Family; Visit Provider Nurse Practitioner Family | DX: E55.9 Vitamin D deficiency, unspecified (principal); E11.9 Type 2 diabetes mellitus without complications; I10 Essential (primary) hypertension | CPT/HCPCS: 80053; 80061; 81003; 82306; 82607; 83036; 84443; 85025; 87086 ==

== ENCOUNTER → 2025-01-12 15:27 | Outpatient (BNVA) | payer MEDICARE, BC, SELFPAY | PROVIDERS: PCP Nurse Practitioner Family; Visit Provider Nurse Practitioner Family | DX: S21.209A Unspecified open wound of unspecified back wall of thorax without penetration into thoracic cavity, initial encounter (principal); X58.XXXA Exposure to other specified factors, initial encounter | CPT/HCPCS: 87070; 87075; 87205 ==

== ENCOUNTER → 2025-01-20 08:14 | Outpatient (BNVA) | payer MEDICARE, BC, SELFPAY | PROVIDERS: PCP Nurse Practitioner Family; Visit Provider Thoracic Surgery (Cardiothoracic Vascular Surgery) | DX: I96 Gangrene, not elsewhere classified (principal); L98.421 Non-pressure chronic ulcer of back limited to breakdown of skin | CPT/HCPCS: 97597; 99203 ==

== ENCOUNTER → 2025-01-29 11:30 | Outpatient (BNVA) | payer MEDICARE, BC, SELFPAY | PROVIDERS: PCP Nurse Practitioner Family; Visit Provider Nurse Practitioner Family | DX: E11.9 Type 2 diabetes mellitus without complications (principal); Z79.899 Other long term (current) drug therapy | CPT/HCPCS: 80053; 80061; 82306; 83036; 85025 ==

== ENCOUNTER → 2025-02-02 12:13 | Outpatient (BNVA) | payer MEDICARE, BC, SELFPAY | PROVIDERS: PCP Nurse Practitioner Family; Referring Provider Nurse Practitioner Family; Visit Provider Internal Medicine | DX: E11.9 Type 2 diabetes mellitus without complications (principal) | CPT/HCPCS: 36415; 82947; 84681; 86337; 86341 ==

== ENCOUNTER 2025-06-06 22:07 | Emergency (ER) | payer MEDICARE, BC, SELFPAY ==
--- OUTSIDE RECORDS SUMMARY | 2025-06-06 22:15 | XMS_ITS | Clinical Summary ---
Author Organization [facility] Address [address] [place] [address] Phone Care Team Providers Care Principal Java Developer Name Role Phone Unavailable Primary Care Provider Unavailabl e Social History Tobacco Use Types Packs/Day Years Used Date Smoking Tobacco: Never Assessed Comments Unknown Sex and Gender Information Value Date Recorded Sex Assigned at Not on file Legal Sex Female 3:44 PM PEARL HAND Gender Identity Not on file Sexual Orientation Not on file Plan of Treatment Health Maintenance Due Date Last Done Comments Annual Depression Screening 1951 Pneumococcal Vaccine Age 50+ (1 of 1 - PCV) 1991 Bone Density 2006 RSV Immunization Pa tients or 60+ Years (1 - 1-dose 75+ series) 2016 Flu Vaccine (#1) 05/31/2025 Influenza Vaccine 05/31/2025
[2025-06-06 22:18] VITALS: BP 96/58; PULSE 78; RESP 16; TEMP 36.4; O2SAT 93; BMI 23.5
--- NOTE | 2025-06-07 00:12 | XRR_ITS ---
PROCEDURE INFORMATION: Exam: XR Right Foot Exam date and time: 06/07/2025 12:20 AM Age: 84 years old Clinical indication: Injury or trauma; Other: Right great toenail coming off; Wound; Toes; Foreign body involvement not specified; Additional info: Toenail injury TECHNIQUE: Imaging protocol: Radiologic exam of the right foot. Views: 3 or more views. COMPARISON: No relevant prior studies available. FINDINGS: Bones/joints: Calcaneal spurs are noted. No acute fracture. No osseous erosions. The bones appear osteopenic. Soft tissues: Moderate soft tissue edema of the dorsal foot is present. XR/XR foot RT min 3V* 36039 IMPRESSION: 1. No acute osseous abnormality. 2. Suggested osteopenia. 3. Moderate soft tissue edema of the dorsal foot. Correlate for soft tissue infection or other systemic source.
[2025-06-07 01:21] VITALS: BP 123/64; PULSE 65; O2SAT 91
[2025-06-07 01:36] LABS: Glucose Urine UA 3+ (Normal); Nitrate Urine Negative (Negative); Specific Gravity, Urine 1.016 (1.005-1.030)
--- NOTE | 2025-06-07 01:36 | ED_ITS ---
HPI - Skin/Abscess/Foreign Bdy 2 General: Chief complaint: Skin/Abscess/Foreign Body Stated complaint: Cut on RT Toe\Spider Bite on Back Time Seen by Provider: 06/07/25 00:11 History of Present Illness: Patient is a 84-year-old female with DM, last hemoglobin A1c in January is 17.7, HTN, presents to the emergency room where she had a hanging skin to her right toe, started to tear off, and noted that she had a large skin care. She was first checking her ingrown toenail, that I do not appreciate at bedside, when she started to pull the skin. She has a small black area to her big toe medially. As well, patient was seen by her doctor a few days ago for what she believed was a spider bite to her back. She was diagnosed with some type of spider bite at that time. She has not been placed on antibiotics, and it has an occasional white draining area. Associated symptoms: Deny chills, fever(s), nausea or vomiting Related Data Previous Rx's ?Medication ?Instructions ?Recorded lancets 30 gauge #100 ea 05/20/24 flash glucose sensor (FreeStyle #1 ea 02/01/25 Moe 14 Day Sensor kit) pen needle, diabetic 31 gauge x #1,200 ea 02/02/2512/13 (TRUEplus Pen Needle) furosemide 40 mg tablet See Rx Instructions .Route 0 02/26/25 .COMPLEX #30 tabs triamterene 37.5 See Rx Instructions .Route 0 02/26/25 mg-hydrochlorothiazide 25 mg tablet .COMPLEX #30 tabs insulin aspart U-100 100 unit/mL See Rx Instructions S UBCUT TID #15 03/23/25 (3 mL) subcutaneous pen (Novolog mL FlexPen U-100 Insulin aspart) insulin glargine 100 unit/mL (3 12 unit (0.12 mL) SUBC UT QAM #3 mL 03/23/25 mL) subcutaneous pen (Lantus Solostar U-100 Insulin) furosemide 40 mg tablet (Lasix) See Rx Instructions PO .COMPLEX 04/16/25 #10 tabs potassium chloride 10 mEq See Rx Instructions .Route 0 04/16/25 capsule,extended release .COMPLEX #60 caps ergocalciferol (vitamin D2) 1,250 See Rx Instructions .Route 07/28/25 mcg (50,000 unit) capsule .COMPLEX #12 caps metoprolol succinate 50 mg See Rx Instructions .Route 05/28/25 tablet,extended release 24 hr .COMPLEX #30 tabs doxycycline hyclate 100 mg capsule 100 mg PO BID 14 da ys #28 caps 06/07/25 Allergies Allergy/AdvReac Type Severity Reaction Status Date / Time No Known Allergies Allergy Verified 06/06/25 22:25 Review of Systems 2 General: Reports: 10 or more systems reviewed and unremarkable except in HPI and below Const: Denies: fever(s) or chills Eyes: Denies: change in vision or blurry vision ENMT: Denies: throat pain or mouth pain Card: Denies: chest pain or palpitations Resp: Denies: dyspnea or non-productive cough GI: Denies: abdominal pain, nausea or vomiting Musc: Denies: neck pain, back pain, extremity pain, joint pain or joint swelling Skin/Breast: Denies: rash or pruritus Neuro: Denies: headache(s), numbness in extremities, weakness in extremities, sensory changes or lack of coordination Psych: Denies: anxiety or depression PFSH ED 2 PFSH: Medical History (Updated 06/07/25 @ 01:41 by ELISEO Walls) Enrolled in chronic care management MVP (mitral valve prolapse) Headache Cerebrovascular accident Atrial fibrillation Altered mental status Occipital stroke Type 2 diabetes mellitus Hyperlipemia Hypertension Social History Smoking and tobacco/nicotine status: never used tobacco/nicotine Alcohol intake: never Substance/Drug Use: never Marital status: / Physical Exam 2 Const: COMMON NORMALS: no acute distress, average body habitus and patient oriented x3 HENMT: COMMON NORMALS: normocephalic and atraumatic HEAD & SCALP: n ormocephalic and atraumatic Eye: COMMON NORMALS: Equal, round and reactive pupils present and EOMs intact bilaterally PUPIL: Yes Equal, round and reactive pupils present Neck/C-Spine: COMMON NORMALS: full ROM and no lymphadenopathy Lymph: LYMPHATIC: no lymphadenopathy noted Chest: COMMONS NORMALS: normal inspection of the chest Cardio: COMMON NORMALS: regular rate and regular rhythm RATE: regular rate RHYTHM: regular rhythm GI: COMMON NORMALS: Normal to inspection, nondistended, normoactive bowel sounds present : COMMON NORMALS: Yes no CVA tenderness BLADDER/KIDNEY EXAM: Yes no CVA tenderness Back/Pelvis: COMMON NORMALS: no CVA tenderness Extremity: COMMON NORMALS: full ROM and capillary refill normal OTHER: Skin flap noted on plantar right big toe medially without surrounding redness or drainage. Back is noted as a small amount of induration that is not amendable to draining given the location, and the look of this wound. It is appropriate however for antibiotics. Neuro: COMMON NORMALS: patient oriented x3 Skin: SKIN IMAGES (FEMALE): 1. superficial white, red, with only mild induration Course 2 Vital Signs: Vital signs: Vital Signs Temperature 97.5 F L 06/06/25 22:18 Pulse Rate 97 06/07/25 02:22 Respiratory Rate 16 06/07/25 02:22 Blood Pressure 123/100 06/07/25 02:22 Pulse Oximetry 92 06/07/25 02:22 Oxygen Delivery Me thod Room Air 06/07/25 01:21 MDM - Skin/Abscess/Foreign Bdy Medicial Decision Making Patient is a diabetic foot wound from where she cut her foot and was unaware of it, started to pull the extra skin, and appeared to cause more damage. There was not any destruction of the bone to that right foot big toe, therefore we will treat with antibiotics, and send to wound care. As far as her left side of her back, this area is not amicable to drainage. Will place her on antibiotics with her toe and have wound care follow-up. I am unsure if this is a spider/insect bite at this time, but did discuss her uncontrolled blood glucose and association of increased, which patient understand Lab Data Radiology Impressions Foot X-Ray 06/07/25 00:12 IMPRESSION: 1. No acute osseous abnormality. 2. Suggested osteopenia. 3. Moderate soft tissue edema of the dorsal foot. Correlate for soft tissue infection or other systemic source. Laboratory Results Urine Color Yellow (Yellow) 06/07/25 00:30 Urine Appearance Clear (CLEAR) 06/07/25 00:30 Urine pH 5.5 (5-7) 06/07/25 00:30 Ur Specific [place] 1.016 (1.005-1.030) 06/07/25 00:30 Urine Protein Negative (Negative) 06/07/25 00:30 Urine Glucose (UA) 3+ (Normal) H 06/07/25 00:30 Urine Ketones Negative (Negative) 06/07/25 00:30 Urine Blood Negative (Negative) 06/07/25 00:30 Urine Nitrate Negative (Negative) 06/07/25 00:30 Urine Bilirubin Negative (Negative) 06/07/25 00:30 Urine Urobilinogen 1.0 mg/dL (Negative) 06/07/25 00:30 Ur Leukocyte Esterase Negative (Negative) 06/07/25 00:30 Urine RBC 0-2 /hpf (0-2) 06/07/25 00:30 Urine WBC 0-5 /hpf (0-5) 06/07/25 00:30 Ur Squamous Epith Cells 0-5 /hpf (0-5) 06/07/25 00:30 Amorphous Sediment Not Reportable 06/07/25 00:30 Urine Bacteria None seen /hpf (NONE) 06/07/25 00:30 Hyaline Casts 0.40 /lpf 06/07/25 00:30 All radiology interpretation(s) finalized by discharge Discharge Plan Discharge Patient Disposition: Home Clinical Impression: Back abscess Puncture wound of great toe of right foot Qualifiers: Encounter type: initial encounter Qualified Code(s): S91.131A - Puncture wound without foreign body of right great toe without damage to nail, initial encounter Condition: Stable Prescriptions: New doxycycline hyclate 100 mg capsule 100 mg PO BID 14 Days Qty: 28 0RF No Action (DME) FreeStyle Moe 14 Day Sensor Kit See Rx Instructions .Route Qty: 1 12RF Rx Instructions: check blood sugar four daily and as needed furosemide [Lasix] 40 mg tablet See Rx Instructions PO .COMPLEX Qty: 10 0RF Rx Instructions: take TWO tablets in the AM orally; always take with a potassium tablet. potassium chloride 10 mEq capsule, extended release See Rx Instructions .ROUTE .COMPLEX Qty: 60 2RF Dose Instruction: TAKE TWO CAPSULES BY MOUTH DAILY Rx Instructions: TAKE TWO CAPSULES BY MOUTH DAILY (DME) lancets 30 gauge misc See Rx Instructions .Route Qty: 100 1RF Rx Instructions: As directed (DME) pen needle, diabetic [TRUEplus Pen Needle] 31 gauge x 3/16 needle See Rx Instructions .Route Qty: 1200 0RF Rx Instructions: test 4 times a day furosemide 40 mg tablet See Rx Instructions .ROUTE .COMPLEX Qty: 30 2RF Dose Instruction: TAKE ONE TABLET BY MOUTH EVERY MORNING; needs appt FOR further refills Rx Instructions: TAKE ONE TABLET BY MOUTH EVERY MORNING; prn triamterene-hydrochlorothiazid 37.5-25 mg tablet See Rx Instructions .ROUTE .COMPLEX Qty: 30 2RF Dose Instruction: TAKE ONE TABLET BY MOUTH EVERY MORNING Rx Instructions: TAKE ONE TABLET BY MOUTH EVERY MORNING insulin aspart U-100 [Novolog FlexPen U-100 Insulin] 100 unit/mL (3 mL) insulin pen See Rx Instructions SUBCUT TID Qty: 15 3RF Rx Instructions: check blood sugar before meals TID and administer per sliding scale subcutaneously 150-200: 3 units 201-250: 5 units 251-300: 7 units 301-350: 9 units 351 or higher: 11 units insulin glargine [Lantus Solostar U-100 Insulin] 100 unit/mL (3 mL) insulin pen 12 unit SUBCUT QAM Qty: 3 3RF ergocalciferol (vitamin D2) 1,250 mcg (50,000 unit) capsule See Rx Instructions .ROUTE .COMPLEX Qty: 12 0RF Dose Instruction: TAKE ONE CAPSULE BY MOUTH ONCE a WEEK Rx Instructions: TAKE ONE CAPSULE BY MOUTH ONCE a WEEK metoprolol succinate 50 mg tablet extended release 24 hr See Rx Instructions .ROUTE .COMPLEX Qty: 30 0RF Dose Instruction: TAKE 1 TABLET BY MOUTH DAILY Rx Instructions: TAKE 1 TABLET BY MOUTH DAILY Discharge Orders: Discharge ED (Routine); Ordered 06/07/25 Ordered By: Amada Santoro Referrals: Mari Birch FNP [Primary Care Provider, Family Practice] Discharge Diet: Diabetic Patient Instructions: Abscess (ED), Puncture Wound in the Foot (ED), Patient Portal & Damir Instructions Activity Restrictions/Additional Instructions: You will need to follow-up with wound care. I have made a consultation for case management to call you for follow-up to your right big toe, and your back. Doxycycline, the antibiotic you received here has been sent to pharmacy. Obtain early in the morning and start early. This must be taken with food or will cause nausea. Make sure you utilize a probiotic or daily culture active yogurt to avoid infectious diarrhea You still had glucose in your urine but no infection. Wound care to your toe: Wash daily with Dial soap or pHisoDerm, silver Ag dressing, Vaseline gauze topically, cover with nonadherent dressing, then as per wound care. Discussed with your primary care physician regarding diabetic shoes Return to ED with worsening issues to your right big toe, or your left back. Print Language: Albanian Coding Level of Care Code ED Water Systems Designer for Bishop Carey
[2025-06-07 01:38] LABS: Add Urine Microscopic? YES
[2025-06-07 02:22] VITALS: BP 123/100; PULSE 97; RESP 16; O2SAT 92
--- NOTE | 2025-06-07 09:29 | DCPLANNER ---
messaged wound care for er f/u
== END 2025-06-07 02:22 | disposition home or self-care (01) ==
PROVIDERS: Emergency Provider Physician Assistant; PCP Nurse Practitioner Family
DX: S91.131A Puncture wound without foreign body of right great toe without damage to nail, initial encounter (principal); Z79.4 Long term (current) use of insulin; E11.9 Type 2 diabetes mellitus without complications; E78.5 Hyperlipidemia, unspecified; I10 Essential (primary) hypertension; Z86.73 Personal history of transient ischemic attack (TIA), and cerebral infarction without residual deficits; X58.XXXA Exposure to other specified factors, initial encounter; L02.212 Cutaneous abscess of back [any part, except buttock and flank]
CPT/HCPCS: 73630; 81001; 99284

== ENCOUNTER → 2025-06-21 10:12 | Outpatient (BNVA) | payer MEDICARE, BC, SELFPAY | PROVIDERS: PCP Nurse Practitioner Family; Visit Provider Nurse Practitioner Family | DX: M19.071 Primary osteoarthritis, right ankle and foot (principal); M85.871 Other specified disorders of bone density and structure, right ankle and foot | CPT/HCPCS: 73630 ==

== ENCOUNTER 2025-07-14 06:25 | Outpatient (CLI) | payer MEDICARE, BC, SELFPAY ==
--- NOTE | 2025-07-14 06:48 | USCV_ITS ---
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 The following venous structures were evaluated: common femoral vein, profunda vein, proximal portion of the greater saphenous vein, superficial femoral vein, and the popliteal vein. In addition, the posterior tibial and peroneal trunk were evaluated. FINDINGS: Normal 2-D Doppler and augmentation and compressibility throughout the lower extremity venous structures. Additional imaging through the proximal calf veins also reveals no thrombus. Limited evaluation of the greater saphenous vein is patent with no thrombus. CONCLUSIONS No DVT right lower extremity. Dr. Alana Gómez DO (Electronically Signed) Final Date: 14 July 2025 12:18 S
== END 2025-07-14 06:26 | disposition home or self-care (01) ==
LOC: RAD 06:27
PROVIDERS: PCP Nurse Practitioner Family; Visit Provider Nurse Practitioner Family
DX: M79.661 Pain in right lower leg (principal)
CPT/HCPCS: 93971

== ENCOUNTER → 2025-07-22 11:57 | Outpatient (BNVA) | payer MEDICARE, BC, SELFPAY | PROVIDERS: PCP Nurse Practitioner Family; Visit Provider Nurse Practitioner Family | DX: I10 Essential (primary) hypertension (principal); R60.0 Localized edema | CPT/HCPCS: 80053; 83880; 85025 ==

== ENCOUNTER → 2025-08-05 12:55 | Outpatient (BNVA) | payer MEDICARE, BC, SELFPAY | PROVIDERS: PCP Nurse Practitioner Family; Visit Provider Nurse Practitioner Family | DX: I10 Essential (primary) hypertension (principal); E11.9 Type 2 diabetes mellitus without complications; R60.0 Localized edema | CPT/HCPCS: 80053; 80061; 83036; 83880; 85025 ==

== ENCOUNTER 2025-08-06 16:12 | Outpatient (CLI) | payer MEDICARE, BC, SELFPAY ==
--- NOTE | 2025-08-06 16:15 | USR_ITS ---
PROCEDURE INFORMATION: Exam: US Duplex Right Lower Extremity Arteries Or Arterial Bypass Grafts Exam date and time: 08/06/2025 4:27 PM Age: 84 years old Clinical indication: Pain; Leg, lower; Right; Additional info: M79.604 - pain in right leg TECHNIQUE: Imaging protocol: Right Real-time duplex scan of the arteries or arterial bypass grafts of the right lower extremity with 2-D mc scale, color Doppler flow and spectral waveform analysis. Images documented and saved. COMPARISON: CR XR foot RT min 3V* [id number] 06/21/2025 10:22 AM FINDINGS: Right common femoral artery: No occlusion or significant stenosis. Normal waveform. No pseudoaneurysm in the inguinal region. Right superficial femoral artery: No occlusion or significant stenosis. Normal waveform. Right popliteal artery: No occlusion or significant stenosis. Normal waveform. Right calf/foot arteries: No occlusion or significant stenosis in the visualized arteries. Normal waveforms. Dorsalis pedis artery is patent. Soft tissues: No hematoma or collection. US/[place] [id number] IMPRESSION: No stenosis or occlusion.
== END 2025-08-06 16:13 | disposition home or self-care (01) ==
LOC: RAD 16:13
PROVIDERS: PCP Nurse Practitioner Family; Visit Provider Nurse Practitioner Family
DX: M79.604 Pain in right leg (principal)
CPT/HCPCS: 93926

== ENCOUNTER → 2025-08-19 11:43 | Outpatient (BNVA) | payer MEDICARE, BC, SELFPAY | PROVIDERS: PCP Nurse Practitioner Family; Visit Provider Nurse Practitioner Family | DX: R60.0 Localized edema (principal) | CPT/HCPCS: 80048 ==

== ENCOUNTER 2025-08-20 16:53 | Emergency (ER) | payer MEDICARE, BC, SELFPAY ==
[2025-08-20 17:01] VITALS: BP 102/61; PULSE 88; RESP 18; TEMP 36.3; O2SAT 94
--- OUTSIDE RECORDS SUMMARY | 2025-08-20 17:01 | XMS_ITS | Clinical Summary ---
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
[2025-08-20 17:51] LABS: Hematocrit 42.5 % (36-47); Hemoglobin 14.30 g/dL (11.27-16.99); Mean Corpuscular HGB Conc 33.6 g/dL (30-55); Mean Corpuscular Hemoglobin 29.7 pg (27-33); Mean Corpuscular Volume 88.4 fl (85-98); Nucleated Red Blood Cells % 0 %; Platelet Count 177 10^3/cmm (157-399); Red Blood Count 4.81 10^6/uL (3.85-5.65); White Blood Count 6.51 10^3/uL (3.29-11.43)
[2025-08-20 17:58] VITALS: BP 123/75; PULSE 77; O2SAT 95
--- NOTE | 2025-08-20 18:12 | W.ED.EXTPRO ---
HPI - Extremity Problem General: Chief complaint: General Medical Stated complaint: legs/feet cramping and pain Time Seen by Provider: 08/20/25 17:47 Source: patient Mode of arrival: wheelchair Limitations: no limitations History of Present Illness: Patient is an 84-year-old male presents to ED today along with family for evaluation of muscle cramps. Looking at previous documentation, this has been an ongoing issue for patient with documentation found back in 10/2023 complaining of muscle cramps. Patient has peripheral edema and has recently had medications changed and is now taking Bumex with good results. She feels like her swelling has been doing really well. She is a diabetic and does have a history of peripheral neuropathy. She had been complaining of burning and cramping involving the right calf. She did undergo ultrasound of the right calf which was negative for DVT. Her primary care provider did recently order arterial ultrasound of her right leg as well. This was unremarkable. She has cramps involving bilateral legs, right groin, and recently her arms. She does do some type of topical menthol rub which helps with the muscle soreness but does not help with the cramps. She has not tried any other medications or remedies. Upon arrival she is asymptomatic. She does report soreness when she massages her right calf. MD Complaint: other (Muscle cramps) Onset (ago): month(s) Pain Consistency: intermittent Location: left, right, upper extremity and lower extremity Radiation: none Relieving factors: nothing Exacerbating factors: nothing Associated symptoms: Reports no associated symptoms; Deny chest pain, fever(s) or rash Related Data Previous Rx's ?Medication ?Instructions ?Recorded lancets 30 gauge #100 ea 05/20/24 pen needle, diabetic 31 gauge x #1,200 ea 02/02/2512/13 (TRUEplus Pen Needle) insulin aspart U-100 100 unit/mL See Rx Instructions SUBCUT TID #15 03/23/25 (3 mL) subcutaneous pen (Novolog mL FlexPen U-100 Insulin aspart) potassium chloride 10 mEq See Rx Instructions .Route 04/16/25 capsule,extended release .COMPLEX #60 caps ergocalciferol (vitamin D2) 1,250 See Rx Instructions .Route 04/26/25 mcg (50,000 unit) capsule .COMPLEX #12 caps metoprolol succinate 50 mg See Rx Instructions .Route 05/28/25 tablet,extended release 24 hr .COMPLEX #30 tabs triamterene 37.5 See Rx Instructions .Route 06/18/25 mg-hydrochlorothiazide 25 mg tablet .COMPLEX #30 tabs blood-glucose sensor (FreeStyle #1 ea 07/27/25 Moe 3 Plus Sensor device) bumetanide 1 mg tablet 1 mg PO .COMPLEX #60 tabs 08/05/25 nortriptyline 10 mg capsule 10 mg PO .qhs #30 caps 08/05/25 insulin glargine 100 unit/mL (3 15 unit (0.15 mL) SUBCUT QAM #3 mL 08/19/25 mL) subcutaneous pen (Lantus Solostar U-100 Insulin) Allergies Allergy/AdvReac Type Severity Reaction Status Date / Time No Known Allergies Allergy Verified 08/19/25 10:59 Review of Systems Const: Denies: fever(s), chills, body aches, fatigue or malaise Card: Reports: edema (chronic-improved); Denies: chest pain, palpitations, lightheadedness, syncope or pre-syncope Resp: Denies: dyspnea GI: Denies: abdominal pain Skin/Breast: Denies: rash or erythema Neuro: Denies: numbness in extremities, weakness in extremities, sensory changes or difficulty walking [facility] PFSH: Medical History Enrolled in chronic care management MVP (mitral valve prolapse) Headache Cerebrovascular accident Atrial fibrillation Altered mental status Occipital stroke Type 2 diabetes mellitus Hyperlipemia Hypertension Social History Smoking and tobacco/nicotine status: never used tobacco/nicotine Alcohol intake: never Substance/Drug Use: never Marital status: / Physical Exam Const: COMMON NORMALS: no acute distress, average body habitus, patient oriented x3, no limitations, alert and well nourished GENERAL APPEARANCE: cooperative Resp: COMMON NORMALS: normal respiratory effort and clear to auscultation bilaterally AUSCULTATION: clear to auscultation bilaterally Cardio: COMMON NORMALS: regular rate and regular rhythm RATE: regular rate RHYTHM: regular rhythm Extremity: COMMON NORMALS: capillary refill normal GENERAL: Yes normal exam except as noted OTHER: bilateral leg soreness to palpation; edema seems to be controlled; normal pulses throughout legs; negative Audrey's Neuro: COMMON NORMALS: patient oriented x3, moves all extremities, no focal motor deficits and no sensory deficits noted SENSORIUM/ORIENTATION: Yes alert Course Vital Signs: Vital signs: Vital Signs Temperature 97.4 F L 08/20/25 17:01 Pulse Rate 77 08/20/25 17:58 Respiratory Rate 18 08/20/25 17:01 Blood Pressure 123/75 08/20/25 17:58 Pulse Oximetry 95 08/20/25 17:58 Oxygen Delivery Me thod Room Air 08/20/25 17:01 MDM - Extremity (Nontraumatic) Medical Decision Making Patient is an 84-year-old female here for muscle cramps. This seems to be an ongoing issue for patient. Her swelling to her legs is chronic and seems to be doing good. We did discuss conservative therapies and how most of these are geared towards stretching to help prevent these. We also discussed topical medications that could be beneficial. Blood work today shows a normal potassium normal magnesium. She does have minor elevations to her BUN/Cr. Looks like her baseline Cr is around 1.2-1.3 and she's 1.5 today. This can continue to be followed up by her primary care provider. We also spoke about possible potential therapies which include include B vitamins, quinine-6oz tonic water, Tums at night, etc. These are unlikely to harm anything and could offer some benefit. Medical Records I reviewed the patient's medical records. Lab Data I reviewed the patient's lab results. 08/20/25 17:33 08/20/25 17:33 Laboratory Results WBC 6.51 10^3/uL (3.29-11.43) 08/20/25 17: RBC 4.81 10^6/uL (3.85-5.65) 08/20/25 17: Hgb 14.30 g/dL (11.27-16.99) 08/20/25 17: Hct 42.5 % (36-47) 08/20/25 17: MCV 88.4 fl (85-98) 08/20/25 17: MCH 29.7 pg (27-33) 08/20/25 17: MCHC 33.6 g/dL (30-55) 08/20/25 17:33 RDW 12.9 % (12.1-15.1) 08/20/25 17:33 Plt Count 177 10^3/cmm (157-399) 08/20/25 17:33 MPV 9.8 fL (7.4-10.4) 08/20/25 17:33 Neut % (Auto) 62.0 % 08/20/25 17: Lymph % (Auto) 22.9 % 08/20/25 17:33 [place] % (Auto) 8.8 % 08/20/25 17:33 Eos % (Auto) 5.4 % 08/20/25 17: Baso % (Auto) 0.6 % 08/20/25: Neut # (Auto) 4.04 10^3/uL (1.8-7.7) 08/20/25 17: Lymph # (Auto) 1.5 10^3/uL (0.8-4.8) 08/20/25 17: [place] # (Auto) 0.6 10^3/uL (0.2-0.9) 08/20/25 17:33 Eos # (Auto) 0.4 10^3/uL (0.0-0.8) 08/20/25 17:33 Baso # (Auto) 0.0 10^3/uL (0.0-0.1) 08/20/25 17: Nucleated RBC % (auto) 0 % 08/20/25 17: Nucleated RBCs # 0.0 /100WBC 08/20/25 17:33 Sodium 132 mmol/L (136-145) L 08/20/25 17:33 Potassium 4.5 mmol/L (3.5-5.1) 08/20/25 17:33 Chloride 93 mmol/L (98-107) L 08/20/25 17:33 Carbon Dioxide 28 mmol/L (22-29) 08/20/25 17:33 Anion Gap 15.5 (5-19) 08/20/25 17:33 BUN 54 mg/dL (8-23) H 08/20/25 17:33 Creatinine 1.5 mg/dL (0.5-0.9) H 08/20/25 17:33 GFR Calculation Not Reportable 08/20/25 17:33 Glucose 152 mg/dL (65-115) H 08/20/25 17:33 Calculated Osmolality 292 mOsm/kg (285-295) 08/20/25 17:33 Calcium 9.2 mg/dL (8.5-10.5) 08/20/25 17:33 Magnesium 2.3 mg/dL (1.7-2.3) 08/20/25 17:33 Total Bilirubin 0.6 mg/dL (0.15-1.2) 08/20/25 17:33 AST 15 U/L (0-32) 08/20/25 17:33 ALT 14 U/L (0-33) 08/20/25 17:33 Alkaline Phosphatase 86 U/L (35-105) 08/20/25 17:33 Total Protein 7.6 g/dL (6.6-8.7) 08/20/25 17:33 Albumin 3.7 g/dL (3.5-5.2) 08/20/25 17:33 Globulin 3.9 g/dL (1.3-4.6) 08/20/25 17:33 No radiology studies performed this visit Discharge Plan Discharge Patient Disposition: Home Clinical Impression: Muscle cramps Condition: Stable Prescriptions: No Action potassium chloride 10 mEq capsule, extended release See Rx Instructions .ROUTE .COMPLEX Qty: 60 2RF Dose Instruction: TAKE TWO CAPSULES BY MOUTH DAILY Rx Instructions: TAKE TWO CAPSULES BY MOUTH DAILY bumetanide 1 mg tablet 1 mg PO .COMPLEX Qty: 60 2RF Rx Instructions: 1 mg orally 1 tab bid nortriptyline 10 mg capsule 10 mg PO .qhs Qty: 30 0RF insulin glargine [Lantus Solostar U-100 Insulin] 100 unit/mL (3 mL) insulin pen 15 unit SUBCUT QAM Qty: 3 3RF (DME) lancets 30 gauge misc See Rx Instructions .Route Qty: 100 1RF Rx Instructions: As directed (DME) pen needle, diabetic [TRUEplus Pen Needle] 31 gauge x 3/16 needle See Rx Instructions .Route Qty: 1200 0RF Rx Instructions: test 4 times a day insulin aspart U-100 [Novolog FlexPen U-100 Insulin] 100 unit/mL (3 mL) insulin pen See Rx Instructions SUBCUT TID Qty: 15 3RF Rx Instructions: check blood sugar before meals TID and administer per sliding scale subcutaneously 150-200: 3 units 201-250: 5 units 251-300: 7 units 301-350: 9 units 351 or higher: 11 units ergocalciferol (vitamin D2) 1,250 mcg (50,000 unit) capsule See Rx Instructions .ROUTE .COMPLEX Qty: 12 0RF Dose Instruction: TAKE ONE CAPSULE BY MOUTH ONCE a WEEK Rx Instructions: TAKE ONE CAPSULE BY MOUTH ONCE a WEEK metoprolol succinate 50 mg tablet extended release 24 hr See Rx Instructions .ROUTE .COMPLEX Qty: 30 0RF Dose Instruction: TAKE 1 TABLET BY MOUTH DAILY Rx Instructions: TAKE 1 TABLET BY MOUTH DAILY triamterene-hydrochlorothiazid 37.5-25 mg tablet See Rx Instructions .ROUTE .COMPLEX Qty: 30 2RF Dose Instruction: TAKE 1 TABLET BY MOUTH EVERY MORNING Rx Instructions: TAKE 1 TABLET BY MOUTH EVERY MORNING (DME) FreeStyle Moe 3 Plus Sensor Device See Rx Instructions .ROUTE .COMPLEX Qty: 1 12RF Dose Instruction: USE as directed TO check blood sugar FOUR TIMES DAILY and NEEDED Rx Instructions: USE as directed TO check blood sugar FOUR TIMES DAILY and NEEDED Discharge Orders: Discharge ED (Routine); Ordered 08/20/25 Ordered By: Silva Mg Referrals: Mari Birch FNP [Primary Care Provider, Family Practice] Patient Instructions: Patient Portal & Damir Instructions Activity Restrictions/Additional Instructions: As we discussed, I would like her to follow-up with her primary care provider. She can also follow-up with podiatry to make sure her diabetic foot exams are up-to-date. 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
[2025-08-20 18:15] LABS: Alanine Aminotransferase 14 U/L (0-33); Albumin Level 3.7 g/dL (3.5-5.2); Alkaline Phosphatase 86 U/L (35-105); Anion Gap 15.5 (5-19); Aspartate Amino Transferase 15 U/L (0-32); Blood Urea Nitrogen 54 mg/dL (8-23); Calcium 9.2 mg/dL (8.5-10.5); Carbon Dioxide 28 mmol/L (22-29); Chloride 93 mmol/L (98-107); Globulin 3.9 g/dL (1.3-4.6); Glucose 152 mg/dL (65-115); Magnesium 2.3 mg/dL (1.7-2.3); Osmolality Calculated 292 mOsm/kg (285-295); Potassium 4.5 mmol/L (3.5-5.1); Sodium 132 mmol/L (136-145); Total Protein 7.6 g/dL (6.6-8.7)
[2025-08-20 18:59] VITALS: BP 124/71; PULSE 74; O2SAT 94
== END 2025-08-20 19:04 | disposition home or self-care (01) ==
PROVIDERS: Emergency Provider Physician Assistant; PCP Nurse Practitioner Family
DX: R25.2 Cramp and spasm (principal); Z79.4 Long term (current) use of insulin; E78.5 Hyperlipidemia, unspecified; I10 Essential (primary) hypertension; Z86.73 Personal history of transient ischemic attack (TIA), and cerebral infarction without residual deficits; E11.42 Type 2 diabetes mellitus with diabetic polyneuropathy
CPT/HCPCS: 36415; 80053; 83735; 85025; 99283

== ENCOUNTER 2025-09-01 22:54 | Inpatient (IN) | payer MEDICARE, BC, SELFPAY ==
[2025-09-01 22:48] VITALS: BP 107/89; PULSE 86; RESP 16; TEMP 36.5; O2SAT 93; BMI 29.3
[2025-09-01 22:57] VITALS: BP 115/73; PULSE 91; RESP 20; O2SAT 95
--- NOTE | 2025-09-01 22:57 | CTR_ITS ---
PROCEDURE INFORMATION: Exam: CT Head Without Contrast Exam date and time: 09/01/2025 11:06 PM Age: 84 years old Clinical indication: Stroke-like symptoms; Other: Symptoms of acute stroke TECHNIQUE: Imaging protocol: Computed tomography of the head without contrast. Radiation optimization: All CT scans at this facility use at least one of these dose optimization techniques: automated exposure control; mA and/or kV adjustment per patient size (includes targeted exams where dose is matched to clinical indication); or iterative reconstruction. Other technique: STROKE PROTOCOL was implemented. COMPARISON: CT head wo con* [id number] 07/09/2023 12:41 AM RADIATION DOSE METRICS: Total DLP (mGy-cm): 1078.88 FINDINGS: Brain: No intracranial hemorrhage. There is global parenchymal volume loss. Periventricular white matter hypoattenuation is nonspecific but most likely due to small vessel disease. No evidence of acute territorial infarct or cerebral edema. No mass effect or midline shift. Left occipital encephalomalacia. Cerebral ventricles: Prominent ventricles likely secondary to volume loss. Paranasal sinuses: Visualized paranasal sinuses are clear. Mastoid air cells: The mastoid air cells are clear. Bones: The calvarium is intact. Soft tissues: Unremarkable. CT/CT head thrombolytic [id number] IMPRESSION: No acute intracranial findings. ASSESSMENT: ASPECTS (Tanika Stroke Program Early CT Score) is 10.
--- NOTE | 2025-09-01 22:57 | CTR_ITS ---
PROCEDURE INFORMATION: Exam: CTA Head With Contrast, Arteriography Exam date and time: 09/01/2025 11:10 PM Age: 84 years old Clinical indication: Weakness; Additional info: L facial droop acute onset, CVA vs bells palsy TECHNIQUE: Imaging protocol: Computed tomographic angiography of the head with contrast. Exam focused on the arteries. 3D rendering (Not supervised by radiologist): MIP and/or 3D reconstructed images were created by the technologist. Radiation optimization: All CT scans at this facility use at least one of these dose optimization techniques: automated exposure control; mA and/or kV adjustment per patient size (includes targeted exams where dose is matched to clinical indication); or iterative reconstruction. Contrast material: OMNI 350; Contrast volume: 100 ml; Contrast route: INTRAVENOUS (IV); COMPARISON: CT head thrombolytic [id number] 09/01/2025 11:06 PM RADIATION DOSE METRICS: Total DLP (mGy-cm): 488.84 FINDINGS: ANTERIOR CIRCULATION: Right internal carotid artery: The intracranial right internal carotid artery demonstrates mild atherosclerotic calcification of the carotid siphon without significant stenosis. No aneurysm. Right middle cerebral artery: Right middle cerebral artery is patent. No significant stenosis. No aneurysm. Right anterior cerebral artery: Right anterior cerebral artery is patent. No significant stenosis. No aneurysm. Left internal carotid artery: The intracranial left internal carotid artery demonstrates mild atherosclerotic calcification of the carotid siphon without significant stenosis. No aneurysm. Left middle cerebral artery: Left middle cerebral artery is patent. No significant stenosis. No aneurysm. Left anterior cerebral artery: Left anterior cerebral artery is patent. No significant stenosis. No aneurysm. POSTERIOR CIRCULATION: Right vertebral artery: The right vertebral artery is dominant. Right vertebral artery is patent. No significant stenosis. No aneurysm. 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 This segment is diminutive. The left PICA is widely patent. There is reconstitution of the distal left vertebral artery at the vertebrobasilar junction. Basilar artery: The basilar artery is patent. No significant stenosis. No aneurysm. Right posterior cerebral artery: Right posterior cerebral artery is patent. No significant stenosis. No aneurysm. Left posterior cerebral artery: Left posterior cerebral artery is patent. No significant stenosis. No aneurysm. Veins: The visualized dural venous sinuses are patent. Brain: Please see separately ordered CT of the head for detailed report. Cerebral ventricles: Please see separately ordered CT of the head for detailed report. Bones/joints: Unremarkable. Soft tissues: Unremarkable. PROCEDURE INFORMATION: Exam: CTA Neck With Contrast Exam date and time: 09/01/2025 11:10 PM Age: 84 years old Clinical indication: Weakness; Additional info: L facial droop acute onset, CVA vs bells palsy TECHNIQUE: Imaging protocol: Computed tomographic angiography of the neck with contrast. Exam focused on the cervical segments of the vasculature. 3D rendering (Not supervised by radiologist): MIP and/or 3D reconstructed images were created by the technologist. Radiation optimization: All CT scans at this facility use at least one of these dose optimization techniques: automated exposure control; mA and/or kV adjustment per patient size (includes targeted exams where dose is matched to clinical indication); or iterative reconstruction. Contrast material: OMNI 350; Contrast volume: 100 ml; Contrast route: INTRAVENOUS (IV); COMPARISON: CT head thrombolytic [id number] 09/01/2025 11:06 PM RADIATION DOSE METRICS: Total DLP (mGy-cm): 488.84 FINDINGS: Right common carotid artery: The right common carotid artery shows no evidence of significant stenosis. Right internal carotid artery: The right internal carotid artery shows no evidence of significant stenosis. Right external carotid artery: The right external carotid artery shows no evidence of significant stenosis. Left common carotid artery: The left common carotid artery is patent. No significant stenosis. Left internal carotid artery: The left internal carotid artery shows no evidence of significant stenosis. Left external carotid artery: The left external carotid artery shows no evidence of significant stenosis. Right vertebral artery: Mild narrowing of the right vertebral artery V2 segment due to degenerative disease of the cervical spine, otherwise patent. No high-grade stenosis or occlusion. No dissection. The right vertebral artery is dominant. Left vertebral artery: Left vertebral artery is patent. No significant stenosis. No evidence of dissection. Thyroid: The thyroid gland is heterogeneous. Soft tissues: Soft tissues are unremarkable as visualized. Bones/joints: There is a nonspecific reversal of the normal cervical lordosis. The cervical spine demonstrates marked degenerative changes at multiple levels. Lungs: [id number] emphysematous changes of the visualized lungs. CT/CT angio headneck* [id number] IMPRESSION: 1. 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 There is reconstitution of the distal left vertebral artery stump at the vertebrobasilar junction. 2. No additional high-grade stenosis or occlusion. IMPRESSION: 1. No high-grade stenosis or occlusion. 2. [id number] emphysematous changes of the visualized lungs. REFERENCES: NASCET CRITERIA. The degree of stenosis in the cervical segment of the internal carotid artery is based on NASCET criteria. Normal is no stenosis. Mild is less than 50% stenosis. Moderate is 50-69% stenosis. Severe is 70% to 99% stenosis. Total occlusion is no detectable patent lumen.
--- OUTSIDE RECORDS SUMMARY | 2025-09-01 22:58 | XMS_ITS | Clinical Summary ---
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
--- NOTE | 2025-09-01 23:01 | W.ED.NEUROSD ---
HPI - Neuro Symptoms/Deficit General: Chief Complaint: Neuro Symptoms/Deficit Stated Complaint: AMS History of Present Illness: 84-year-old female past medical history significant for hypertension, hyperlipidemia, diabetes, CVA in the past several years ago with no residual deficits (patient unable to tell me what symptoms she had with this previous stroke), presenting the emergency department with onset today of left facial droop and altered mental status. I spoke with the son Arnold over the phone who is on the way to the emergency department and reports that he saw her normal at around 2 or 3 PM today, at some point noticed around 7 PM that she had a left facial droop and was acting confused, patient is reporting she noticed a droop around 4 PM, she denies headache or dizziness, she denies any falls or trauma Related Data Previous Rx's ?Medication ?Instructions ?Recorded lancets 30 gauge #100 ea 05/20/24 pen needle, diabetic 31 gauge x #1,200 ea 02/02/25/16 (TRUEplus Pen Needle) insulin aspart U-100 100 unit/mL See Rx Instructions SUBCUT TID #15 03/23/25 (3 mL) subcutaneous pen (Novolog mL FlexPen U-100 Insulin aspart) potassium chloride 10 mEq See Rx Instructions .Route 04/16/25 capsule,extended release .COMPLEX #60 caps ergocalciferol (vitamin D2) 1,250 See Rx Instructions .Route 04/26/25 mcg (50,000 unit) capsule .COMPLEX #12 caps metoprolol succinate 50 mg See Rx Instructions .Route 05/28/25 tablet,extended release 24 hr .COMPLEX #30 tabs triamterene 37.5 See Rx Instructions .Route 06/18/25 mg-hydrochlorothiazide 25 mg tablet .COMPLEX #30 tabs blood-glucose sensor (FreeStyle #1 ea 07/27/25 Moe 3 Plus Sensor device) bumetanide 1 mg tablet 1 mg PO .COMPLEX #60 tabs 08/05/25 nortriptyline 10 mg capsule 10 mg PO .qhs #30 caps 08/05/25 insulin glargine 100 unit/mL (3 15 unit (0.15 mL) SUBCUT QAM #3 mL 08/19/25 mL) subcutaneous pen (Lantus Solostar U-100 Insulin) Allergies Allergy/AdvReac Type Severity Reaction Status Date / Time No Known Allergies Allergy Verified 08/19/25 10:59 [facility] ED PFSH: Medical History Enrolled in chronic care management MVP (mitral valve prolapse) Headache Cerebrovascular accident Atrial fibrillation Altered mental status Occipital stroke Type 2 diabetes mellitus Hyperlipemia Hypertension Social History Smoking and tobacco/nicotine status: never used tobacco/nicotine Alcohol intake: never Substance/Drug Use: never Marital status: / NIH stroke score NIHSS: Level Of Consciousness - 1a: 0 Level Of Consciousness Questions - 1b: Neither Correct Level Of Consciousness Commands - 1c: Both Correct Best Gaze - 2: Normal Visual [place] - 3: No Visual Loss Facial Palsy - 4: Partial Paralysis Motor Arm Right - 5: No Drift Motor Arm Left - 5: No Drift Motor Leg Right - 6: No Drift Motor Leg Left - 6: No Drift Limb Ataxia - 7: Absent Sensory - 8: Normal Best Language - 9: No Aphasia Dysarthia - 10: Normal Extinction And Inattention - 11: 0 Score: Total Score: 4 Physical Exam Narrative: EXAM NARRATIVE: Gen: Alert and oriented to person and place and situation but not to time, cannot tell me her age or the month, no acute distress, nontoxic appearing HEENT: Normocephalic, atraumatic, no scleral icterus, external ears normal, moist mucous membranes Neck: Supple, full range of motion, no observable masses Lungs: No Respiratory distress, Lungs clear to auscultation bilaterally no rales, rhonchi, wheezing CV: Regular rate and rhythm, no murmur, no pitting edema to lower extremities bilaterally Abdomen: Soft, nondistended, nontender to palpation MSK: No joint swelling, FROM all 4 extremities Skin: No rashes, petechiae, lesions. Normal color per patient. Neuro: no slurred speech, sensation and strength grossly intact all 4 extremities, she does have partial paralysis of the left face both upper and lower involving the forehead with lid lag delayed, no sensory loss to the face, cranial nerves II through XII otherwise intact other than cranial nerve 7 as above Psych: Appropriate for situation. 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 I recommended admission to the hospital for observation and MRI however at this time patient is unwilling to be admitted. Given she does not meet any criteria for intervention and her symptoms are more consistent with a peripheral process, it is reasonable as an alternative to treat her with antiviral steroids, initiate low-dose aspirin and statin, recommend PCP and neurology follow-up for outpatient MRI. Shared decision making was utilized with the son and the patient at the bedside to come to this conclusion and they do understand the inherently increased risk involved with delaying MRI imaging. Time: 00:49 Reevaluation #2: I reviewed the results of the EKG which appears to show atrial fibrillation, patient does not have any diagnosed history of this and is not on medical therapy for this condition. Given her neurologic symptom as well as new onset atrial fibrillation, I more strongly feel that inpatient admission is warranted, I had another extensive discussion with the family member and the patient who is now willing to be admitted to the hospital for further treatment Time: 01:38 Consultations: Consultation #1: Spoke with Dr. Ortiz of neurology who agrees patient not a candidate for thrombolytics and symptoms not suggestive of need for thrombectomy, pending imaging Time: 23:04 Consultation #2: Spoke to Dr. Oneill of the [facility] medicine who will evaluate the patient for admission Time: 01:45 Vital Signs: Vital signs: Vital Signs Temperature 97.7 F 09/01/25 22:48 Pulse Rate 90 09/02/25 00:20 Respiratory Rate 18 09/02/25 00:20 Blood Pressure 117/71 09/02/25 00:20 Pulse Oximetry 95 09/02/25 00:20 Oxygen Delivery Me thod Room Air 09/02/25 00:20 MDM - Neuro Symptoms/Deficit Medical Decision Making 84-year-old female history hypertension hyperlipidemia diabetes and CVA in the past with no residual deficits, patient is able to ambulate at baseline without assistive devices and is functionally independent with ADLs, presenting the emergency department with onset of left facial droop and possible altered mental status. On exam patient has a left facial droop involving the forehead without sensory loss, no extremity deficits noted, NIH of 4 given patient unable to tell me month and age possibly secondary to altered mental status versus neurocognitive delay/undiagnosed dementia as a possible complicating factor, patient does report that she feels her memory has been poor over the last several months. I spoke briefly with Arnold over the phone the son who reports last known well 2 to 3 PM but is on the way to the ER for further corroborating information, stroke code activated given less than 24-hour symptom duration and risk factors making stroke of higher likelihood although symptoms are also possibly consistent with a Thomas's palsy instead of a central neurologic process, reassess for disposition. Lab Data 09/02/25 00:57 09/02/25 00:[address] 09/01/25 22:57 IMPRESSION: No acute intracranial findings. ASSESSMENT: ASPECTS ([place] Stroke Program Early CT Score) is 10. ADDENDUM: 09/01/25 8591 COMMENT: THIS REPORT CONTAINS FINDINGS THAT MAY BE CRITICAL TO PATIENT CARE. The exam findings were verbally communicated by me to Abdi Menjivar via telephone conference at 11:26 PM ADOBE FLEX DEVELOPER on 09/01/2025. The findings were acknowledged and understood. Head/Neck CTA 09/01/25 22:57 IMPRESSION: 1. 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 There is reconstitution of the distal left vertebral artery stump at the vertebrobasilar junction. 2. No additional high-grade stenosis or occlusion. IMPRESSION: 1. No high-grade stenosis or occlusion. 2. Mhrdmbqr-vb-ffulva emphysematous changes of the visualized lungs. REFERENCES: NASCET CRITERIA. The degree of stenosis in the cervical segment of the internal carotid artery is based on NASCET criteria. Normal is no stenosis. Mild is less than 50% stenosis. Moderate is 50-69% stenosis. Severe is 70% to 99% stenosis. Total occlusion is no detectable patent lumen. Laboratory Results PT 14.20 SECONDS (12.1-14.9) 09/02/25 00:57 INR 1.03 (0.8-1.2) 09/02/25 00:57 APTT 25.5 SECONDS (23.9-36.7) 09/02/25 00:57 Sodium 128 mmol/L (136-145) L 09/02/25 00:57 Potassium 3.4 mmol/L (3.5-5.1) L 09/02/25 00:57 Chloride 86 mmol/L (98-107) L 09/02/25 00:57 Carbon Dioxide 31 mmol/L (22-29) H 09/02/25 00:57 Anion Gap 14.4 (5-19) 09/02/25 00:57 BUN 42 mg/dL (8-23) H 09/02/25 00:57 Creatinine 1.5 mg/dL (0.5-0.9) H 09/02/25 00:57 GFR Calculation Not Reportable 09/02/25 00:57 Glucose 316 mg/dL (65-115) H 09/02/25 00:57 Calculated Osmolality 289 mOsm/kg (285-295) 09/02/25 00:57 Calcium 8.8 mg/dL (8.5-10.5) 09/02/25 00:57 Total Bilirubin 0.6 mg/dL (0.15-1.2) 09/02/25 00:57 AST 18 U/L (0-32) 09/02/25 00:57 ALT 17 U/L (0-33) 09/02/25 00:57 Alkaline Phosphatase 101 U/L (35-105) 09/02/25 00:57 Total Protein 7.3 g/dL (6.6-8.7) 09/02/25 00:57 Albumin 3.5 g/dL (3.5-5.2) 09/02/25 00:57 Globulin 3.8 g/dL (1.3-4.6) 09/02/25 00:57 Urine Color Yellow (Yellow) 09/02/25 00:12 Urine Appearance Clear (CLEAR) 09/02/25 00:12 Urine pH 6.0 (5-7) 09/02/25 00:12 Ur Specific [place] 1.012 (1.005-1.030) 09/02/25 00:12 Urine Protein Negative (Negative) 09/02/25 00:12 Urine Glucose (UA) Trace (Normal) H 09/02/25 00:12 Urine Ketones Negative (Negative) 09/02/25 00:12 Urine Blood Negative (Negative) 09/02/25 00:12 Urine Nitrate Negative (Negative) 09/02/25 00:12 Urine Bilirubin Negative (Negative) 09/02/25 00:12 Urine Urobilinogen 0.2 mg/dL (Negative) 09/02/25 00:12 Ur Leukocyte Esterase Negative (Negative) 09/02/25 00:12 Urine RBC 0-2 /hpf (0-2) 09/02/25 00:12 Urine WBC 0-5 /hpf (0-5) 09/02/25 00:12 Ur Squamous Epith Cells 0-5 /hpf (0-5) 09/02/25 00:12 Amorphous Sediment Not Reportable 09/02/25 00:12 Urine Bacteria None seen /hpf (NONE) 09/02/25 00:12 Hyaline Casts 2.87 /lpf 09/02/25 00:12 Urine Opiates Screen Negative ng/mL (Negative) 09/02/25 00:12 Ur Barbiturates Screen Negative ng/mL (Negative) 09/02/25 00:12 Ur Phencyclidine Scrn Negative ng/mL (Negative) 09/02/25 00:12 Ur Amphetamines Screen Negative ng/mL (Negative) 09/02/25 00:12 U Benzodiazepines Scrn Negative ng/mL (Negative) 09/02/25 00:12 Urine Cocaine Screen Negative ng/mL (Negative) 09/02/25 00:12 U Marijuana (THC) Screen Negative ng/mL (Negative) 09/02/25 00:12 All radiology interpretation(s) finalized by discharge ED provider radiology interpretation(s): CT head no acute intracranial hemorrhage, CTA of head and neck shows a 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
[2025-09-01] MEDS: iohexol 350 mg/mL 500 mL Btl (per mL) IV (23:32)
--- NOTE | 2025-09-01 23:47 | ECG_ITS ---
[facility] Test Date: 2025-09-01 Pat Name: Adri Gonzalez (Pat) Department: Room: Gender: Female Correction Warden: : 1940 Requested By: Abdi Menjivar Order Number: [id number] Raven MD: Hans Laughlin M.D. Measurements Intervals [place] Rate: 78 P: 0 UT: 0 QRS: 45 QRSD: 114 T: 60 QT: 402 QTc: 460 Interpretive Statements ATRIAL FIBRILLATION MODERATE INTRAVENTRICULAR CONDUCTION DELAY [110+ ms QRS DURATION] ABNORMAL RHYTHM ECG Compared to ECG 07/09/2023 01:25:47 Intraventricular conduction delay now present Ventricular premature complex(es) no longer present Aberrant conduction of supraventricular beat(s) no longer present Incomplete right bundle-branch block no longer present T-wave abnormality no longer present Baseline artifacts, need to repeat Electronically Signed On 09-01-2025 23:50:56 OR FIRST ASSIST REGISTERED NURSE by Hans Laughlin M.D. [email or web address]
[2025-09-02] VITALS (9 sets, daily range): BP systolic 102–134; BP diastolic 42–71; PULSE 63–90; RESP 15–20; TEMP 36.2–36.6; O2SAT 92–98; BMI 29.3
[2025-09-02 00:32] LABS: Glucose Urine UA Trace (Normal); Nitrate Urine Negative (Negative); Specific Gravity, Urine 1.012 (1.005-1.030)
[2025-09-02 00:35] LABS: Add Urine Microscopic? YES
[2025-09-02 00:37] LABS: PCP Screen Urine Negative (Negative)
[2025-09-02 01:06] LABS: Hematocrit 43.1 % (36-47); Hemoglobin 14.40 g/dL (11.27-16.99); Mean Corpuscular HGB Conc 33.4 g/dL (30-55); Mean Corpuscular Hemoglobin 29.6 pg (27-33); Mean Corpuscular Volume 88.7 fl (85-98); Platelet Count 205 10^3/cmm (157-399); Red Blood Count 4.86 10^6/uL (3.85-5.65); White Blood Count 7.24 10^3/uL (3.29-11.43)
[2025-09-02 01:19] LABS: Alanine Aminotransferase 17 U/L (0-33); Albumin Level 3.5 g/dL (3.5-5.2); Alkaline Phosphatase 101 U/L (35-105); Anion Gap 14.4 (5-19); Aspartate Amino Transferase 18 U/L (0-32); Blood Urea Nitrogen 42 mg/dL (8-23); Calcium 8.8 mg/dL (8.5-10.5); Carbon Dioxide 31 mmol/L (22-29); Chloride 86 mmol/L (98-107); Globulin 3.8 g/dL (1.3-4.6); Glucose 316 mg/dL (65-115); Osmolality Calculated 289 mOsm/kg (285-295); Potassium 3.4 mmol/L (3.5-5.1); Sodium 128 mmol/L (136-145); Total Protein 7.3 g/dL (6.6-8.7)
[2025-09-02 01:40] LABS: INR 1.03 (0.8-1.2); Partial Thromboplastin Time 25.5 SECONDS (23.9-36.7); Prothrombin Time 14.20 SECONDS (12.1-14.9)
[2025-09-02 01:48] LABS: Absolute Segmented Neutrophil 3.8 10/cmm (1.6-7.1); Atypical Lymphs 7.0 % (0-5); Slide Review Slide Review Perform; Total Cells Counted 100 (0-100)
--- NOTE | 2025-09-02 02:35 | P.HP_ITS ---
Providers/Chief Complaint 2 Primary Care Provider: ANDREAS Sullivan Chief Complaint: AMS History of Present Illness Adri (Indra Gonzalez is a 84 year old female with history significant for prior CVA, HTN, DM, and peripheral neuropathy, who presents with complaints of left facial weakness. She was last known normal at about 1400 on 09/01. Son present mentions he noticed the left lower lid begin to dropp at about 1600. 1 hour later, it was the entire left face. He asked the patient to stick out her tongue and noticed it moved to the left. They both later went to rest and on awakening, symptoms were worsened. So son called EMS. Patient mentions her taste has been flat as of late and son feel that her speech is slightly off. He also noticed a dark band of skin from the left orthodoxy to the left zygoma. Otherwise there are no other areas of new weakness, numbness, or tingling. Patient denies an recent illness or ill contacts Medications/Allergies Home Medications ?Medication ?Instructions ?Recorded ?Confirmed ?Last Taken ?Type lancets 30 gauge #100 ea 05/20/24 08/19/25 Un known Rx pen needle, diabetic 31 gauge x #1,200 ea 02/02/25 Unknown Rx 3/16 (TRUEplus Pen Needle) insulin aspart U-100 100 unit/mL See Rx Instructions S UBCUT TID #15 03/23/25 08/19/25 Unknown Rx (3 mL) subcutaneous pen (Novolog mL FlexPen U-100 Insulin aspart) potassium chloride 10 mEq See Rx Instructions .Route 0 04/16/25 08/19/25 Unknown Rx capsule,extended release .COMPLEX #60 caps ergocalciferol (vitamin D2) 1,250 See Rx Instructions .Route 04/26/25 08/19/25 Unknown Rx mcg (50,000 unit) capsule .COMPLEX #12 caps metoprolol succinate 50 mg See Rx Instructions .Route 05/28/25 08/19/25 Unknown Rx tablet,extended release 24 hr .COMPLEX #30 tabs triamterene 37.5 See Rx Instructions .Route 0 06/18/25 08/19/25 Unknown Rx mg-hydrochlorothiazide 25 mg tablet .COMPLEX #30 tabs blood-glucose sensor (FreeStyle #1 ea 07/27/25 5 Unknown Rx Moe 3 Plus Sensor device) bumetanide 1 mg tablet 1 mg PO .COMPLEX #60 tabs 08/19/25 Unknown Rx nortriptyline 10 mg capsule 10 mg PO .qhs #30 caps 03/2408/19/25 Unknown Rx insulin glargine 100 unit/mL (3 15 unit (0.15 mL) SUBC UT QAM #3 mL 08/19/25 08/19/25 Unknown Rx mL) subcutaneous pen (Lantus Solostar U-100 Insulin) Allergies Allergy/AdvReac Type Severity Reaction Status Date / Time No Known Allergies Allergy Verified 08/19/25 10:59 PFSH Acute 2 PFSH: Medical History (Updated 09/02/25 @ 03:20 by Tiburcio Oneill MD) Enrolled in chronic care management MVP (mitral valve prolapse) Headache Cerebrovascular accident Atrial fibrillation Altered mental status Occipital stroke Type 2 diabetes mellitus Hyperlipemia Hypertension Social History Smoking and tobacco/nicotine status: never used tobacco/nicotine Alcohol intake: never Substance/Drug Use: never Marital status: / Vitals/I&O/Wt Last Vital Signs Temp 97.7 F 09/01/25 22:48 Pulse 90 09/02/25 00:20 Resp 18 09/02/25 00:20 BP 117/71 09/02/25 00:20 Pulse Ox 95 09/02/25 00:20 O2 Del Method Room Air 09/02/25 00:20 Weight last 48 hrs Weight 84.935 kg Physical Exam 2 Const: COMMON NORMALS: no acute distress, patient oriented x3 and healthy appearing Resp: COMMON NORMALS: normal respiratory effort and No retractions Cardio: OTHER: Irregularly irregular. No MRG Neuro: OTHER: Patient is unable to completely close left eyelid on command. Asymmetric smile with droop on the left. Patient is unable to lift her left brow on command. No tongue deviation on protrusion. Facial sensation intact and symmetric. Speech is clear. 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 Will continue this - As a part of the CVA evaluation, will order echo - Will defer to day attending on the need for neurology consultation and possible MRI - Keep on telemetry 2. Atrial fibrillation, unspecified type: - Not entirely clear if this is new or return of a prior diagnosis. Patient mentions she had this issue at about age 16 - Continue home metoprolol - [id number] score is 7 favoring anticoagulation. However, patient was undecided on anticoagulation after discussing risk and benefits. This should be revisted in the morning. Hold for now 3. Type 2 diabetes mellitus: - Continue 15u basal insulin and place on low SSI otherwise 4. Hypertension: - Hold home antihypertensive 5. Hyponatremia: - Hold HCTZ containing antihypertensive - Hold bumex for now 6. Hypokalemia: - Hold antihypertensive. Replete K - Hold bumex 7. RAFAELA (acute kidney injury): - Likely due to her meds. 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
[2025-09-02] MEDS: artificial tears Op Soln 15 mL Btl 1 DROP EYE-LEFT (02:50)
--- NOTE | 2025-09-02 03:26 | USCV_ITS ---
Adri Gonzalez (Pat) Age: 84 Gender: F : 1940 Exam Date: 09/02/2025 04:12 Ordering Phys: Tiburcio Oneill MD Technologist: JOHANNE Exam Location: [facility] [place] Indication: stroke-like symptoms, prior CVA, HTN, DM BP: 108 / 42 HR: 72 Rhythm: Sinus Technical Quality: Adequate MEASUREMENTS (Male / Female) Normal Values 2D ECHO LV Diastolic Diameter PLAX 3.8 cm 4.2 - 5.9 / 3.9 - 5.3 cm IVS Diastolic Thickness 1.2 cm 0.6 - 1.0 / 0.6 - 0.9 cm IVS Systolic Thickness 1.7 cm LVPW Diastolic Thickness 1.4 cm 0.6 - 1.0 / 0.6 - 0.9 cm LVPW Systolic Thickness 1.7 cm LVOT Diameter 1.5 cm LV Ejection Fraction 2D Teich 68.4 % LV Ejection Fraction MOD 4C 54.0 % LV Ejection Fraction MOD 2C 72.0 % LV Ejection Fraction 2C AL 71.5 % LA Diameter 4.2 cm LA Sys Volume AL 91.4 cm cubed LA Sys Volume Index AL 45.1 cm cubed/m squared Aorta at Sinotubular Diameter 3.3 cm IVC Diameter 1.5 cm M-MODE LA Ao Ratio MM 1.2 AV Cusp Separation MM 2.0 cm DOPPLER AV Peak Velocity 152.0 cm/s LVOT Peak Velocity 94.0 cm/s AV Area Cont Eq vti 1.4 cm squared AV Area Cont Eq pk 1.1 cm squared MV Peak Velocity 106.0 cm/s MV Area PHT 3.8 cm squared Mitral E to A Ratio 819.0 TV Peak Velocity 243.7 cm/s TR Peak Velocity 255.0 cm/s TR Peak Gradient 26.0 mmHg TV Peak E Velocity 75.0 cm/s PV Peak Velocity 111.0 cm/s FINDINGS Left Ventricle Normal left ventricular size and systolic function, EF 72%.mild left ventricular hypertrophy. No regional wall motion abnormalities. Right Ventricle Normal right ventricular size and systolic function. Echodensity in the RV apex, suggestive of moderator band Right Atrium Moderately increased right atrial size. Left Atrium Mildly increased left atrial size. Moderately increased left atrial volume 38 ml/m squared. IA Septum Normal appearance of the interatrial septum. Mitral Valve Thickened mitral valve. Moderate mitral annular calcification. Mild mitral valve regurgitation. Aortic Valve Thickened aortic valve. Mild aortic valve calcification. Tricuspid Valve Mild to moderate tricuspid valve regurgitation. Estimated pulmonary artery peak systolic pressure 36 mmHg Pulmonic Valve Pulmonic valve not well visualized. Pericardium No pericardial effusion. Aorta Normal aortic annulus size. IVC Normal IVC dimension with <50% respiratory change of the inferior vena cava. CONCLUSIONS Normal left ventricular size and systolic function, EF 72%.mild left ventricular hypertrophy. No regional wall motion abnormalities. Mildly increased left atrial size. Moderately increased left atrial volume 38 ml/m squared. Moderately increased right atrial size. Normal right ventricular size and systolic function. Echodensity in the RV apex, suggestive of moderator band. Thickened mitral valve. Moderate mitral annular calcification. Mild mitral valve regurgitation. Thickened aortic valve. Mild aortic valve calcification. Mild to moderate tricuspid valve regurgitation. Estimated pulmonary artery peak systolic pressure 36 mmHg. There is no pericardial effusion. There are no intracardiac masses. No similar previous studies are available for comparison Dr Hans Laughlin MD [facility] (Electronically Signed) Final Date: 02 September 2025 08:09 S
[2025-09-02 04:12] LABS: Cholesterol 135 mg/dL (0-200); HDL Cholesterol 30 mg/dL (60-100); Magnesium 2.3 mg/dL (1.7-2.3); Triglycerides 113 mg/dL (0-150)
[2025-09-02 04:32] LABS: Estmated Average Glucose 269; Hemoglobin A1C 11.0 % (4.0-6.0)
[2025-09-02] MEDS: metoprolol succinate ER (24 HR) 50 mg Tablet PO (05:52)
[2025-09-02] MEDS: insulin glargine 100 units/1 mL 15 UNIT SUBCUT (05:53)
--- NOTE | 2025-09-02 14:17 | MRR_ITS ---
PROCEDURE INFORMATION: Exam: MR Head Without Contrast Exam date and time: 09/02/2025 3:41 PM Age: 84 years old Clinical indication: Hemiplegia and hemiparesis; Nondominant left side; Hemiplegia, unspecified; -cva facial paralysis on left side. Came in er yesterday TECHNIQUE: Imaging protocol: Magnetic resonance imaging of the head without contrast. COMPARISON: CT angio headneck* [id number] 09/01/2025 11:10 PM FINDINGS: Brain: No mass, edema, hemorrhage, or evidence for acute ischemia. Periventricular and subcortical FLAIR intense signal compatible with chronic microvascular ischemic changes. Chronic left PAINTER TOUCH UP territory infarct with encephalomalacia and gliosis. Multiple chronic lacunar infarcts in the left cerebellar hemisphere. Cerebral ventricles: Enlargement of the lateral and 3rd ventricles likely secondary to generalized volume loss. Bones: Unremarkable. Paranasal sinuses: Normal as visualized. No acute sinusitis. Mastoid air cells: Normal as visualized. No mastoid effusion. Orbital cavities: Left lens replacement. Soft tissues: Unremarkable. MR/MR head wo con* [id number] IMPRESSION: 1. No mass, edema, hemorrhage, or evidence for acute ischemia. 2. Chronic left PAINTER TOUCH UP territory infarct. 3. Multiple chronic left cerebellar lacunar infarcts. 4. Extensive chronic microvascular ischemic changes and generalized cerebral volume loss.
--- NOTE | 2025-09-02 15:42 | PC.SLP ---
Pt not available for TECHNICAL ANALYST assessment at this time. Pt at MRI per report.
[2025-09-03] VITALS (9 sets, daily range): BP systolic 102–150; BP diastolic 65–76; PULSE 61–103; RESP 14–17; TEMP 36.2–36.6; O2SAT 93–98
[2025-09-03] MEDS: metoprolol succinate ER (24 HR) 50 mg Tablet PO (04:13)
[2025-09-03] MEDS: insulin glargine 100 units/1 mL 15 UNIT SUBCUT (06:02)
[2025-09-03 06:24] LABS: Cholesterol 111 mg/dL (0-200); HDL Cholesterol 27 mg/dL (60-100); Triglycerides 98 mg/dL (0-150)
[2025-09-03 06:26] LABS: Estmated Average Glucose 280; Hemoglobin A1C 11.4 % (4.0-6.0)
--- NOTE | 2025-09-03 14:18 | P.PN_ITS ---
Subjective 2 Subjective: Patient seen and examined, continues to have left-sided facial droop Vitals/I&O/Wt Last Vital Signs Temp 97.1 F L 09/03/25 11:52 Pulse 75 09/03/25 11:52 Resp 16 09/03/25 11:52 BP 150/69 09/03/25 11:52 Pulse Ox 94 09/03/25 11:52 O2 Del Method Room Air 09/03/25 04:00 09/02/25 09/03/25 09/03/25 22:59 06:59 14:59 Intake Total 252.5 / 252.5 1327.5 / 1580.0 480 / 480 Output Total 400 / 400 500 / 500 Balance 252.5 / 252.5 927.5 / 1180.0 -20 / -20 Weight last 48 hrs Weight 84.822 kg Weight 84.935 kg Weight 84.935 kg Physical Exam 2 Const: COMMON NORMALS: no acute distress, patient oriented x3 and healthy appearing Resp: COMMON NORMALS: normal respiratory effort and No retractions Cardio: OTHER: Irregularly irregular. No MRG Neuro: COMMON NORMALS: patient oriented x3 OTHER: Patient is unable to completely close left eyelid on command. Asymmetric smile with droop on the left. Patient is unable to lift her left brow on command. No tongue deviation on protrusion. Facial sensation intact and symmetric. Speech is clear. 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 Will continue this -Neuro consulted -The MRI of the brain that did not show anything acute. Did show old CVAs. Inform the patient. -Echo completed---EF of 72% mild left ventricular hypertrophy. No regional wall motion normality. Normal RV size and function. - Keep on telemetry 2. Atrial fibrillation, unspecified type: - Not entirely clear if this is new or return of a prior diagnosis. Patient mentions she had this issue at about age 16 - Continue home metoprolol - [id number] score is 7 favoring anticoagulation. However, patient still undecided on anticoagulation 3. Type 2 diabetes mellitus without complication, without long-term current use of insulin: - Continue 15u basal insulin and place on low SSI otherwise - A1c 11. Blood sugars elevated especially because now that she is on steroids. Adjusted the dose of Lantus and also given extra dose this morning. Monitor blood sugars 4. Essential hypertension: - Will resume home blood pressure medications 5. Hyponatremia: - Hold HCTZ containing antihypertensive - Hold bumex for now 6. Hypokalemia: - Hold antihypertensive. Replete K - Hold bumex -Recheck labs today 7. RAFAELA (acute kidney injury): - Likely due to her meds. Hold bumex and triamterene-hctz - rechecking labs PDMP PDMP Reviewed: Not Reviewed Attestations 2 Medical Necessity Statement*: Has hypokalemia hyponatremia the need to be resolved prior to discharge. Elevated blood sugars. Hemoglobin A1c 11. Adjusted dose of Lantus. Monitor blood sugars today. Neuro consult pending. 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
[2025-09-03] MEDS: insulin glargine 100 units/1 mL 10 UNIT SUBCUT (14:21)
[2025-09-03 14:45] LABS: Hematocrit 42.1 % (36-47); Hemoglobin 13.80 g/dL (11.27-16.99); Mean Corpuscular HGB Conc 32.8 g/dL (30-55); Mean Corpuscular Hemoglobin 29.7 pg (27-33); Mean Corpuscular Volume 90.7 fl (85-98); Nucleated Red Blood Cells % 0 %; Platelet Count 228 10^3/cmm (157-399); Red Blood Count 4.64 10^6/uL (3.85-5.65); White Blood Count 12.20 10^3/uL (3.29-11.43)
[2025-09-03 15:09] LABS: Anion Gap 14.1 (5-19); Blood Urea Nitrogen 44 mg/dL (8-23); Calcium 9.3 mg/dL (8.5-10.5); Carbon Dioxide 30 mmol/L (22-29); Chloride 90 mmol/L (98-107); Osmolality Calculated 305 mOsm/kg (285-295); Potassium 4.1 mmol/L (3.5-5.1); Sodium 130 mmol/L (136-145)
--- NOTE | 2025-09-03 15:18 | PM.CONSULT ---
Providers/Reason For Consult Consulting Physician/Specialty*: Dr. Ana Rosa Ortiz Reason for Consult*: Facial weakness Attending Physician: Renae Zazueta MD Primary Care Provider: ANDREAS Sullivan History of Present Illness History of Present Illness Adri Gonzalez (Pat) is a 84 year old woman who was seen in the emergency department 09/01/2025 at 2301. She was complaining of left facial weakness. Her son said she was normal 9 hours prior to that and when he came to visit her left face was drooping and she seemed confused. Dr. Menjivar obtained an NIH stroke scale score of 4 because of left facial weakness. She was not a candidate for any type of intervention because her symptoms were mild. Dr. Menjivar felt that the patient needed to be admitted for an MRI of the brain. I talked with Dr. Menjivar after stroke team was activated but the patient was not a candidate for any type of treatment and teleneurology was not done. I agreed with CT head and CTA. Head/Neck CTA 09/01/25 22:57 1. 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 There is reconstitution of the distal left vertebral artery stump at the vertebrobasilar junction. 2. No additional high-grade stenosis or occlusion. IMPRESSION: 1. No high-grade stenosis or occlusion. 2. Ycxfexmc-gd-ykjugm emphysematous changes of the visualized lungs. 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 She suffers from chronic atrial fibrillation according to her medical record but she is not on a blood thinner. He says he gets around [place] by holding onto the furniture and does not normally use a walker. She does not want to use a walker. Fortunately we now have the extreme wisdom provided by MRI scan of the brain that was done yesterday as an inpatient that does not show a new stroke. 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 She has extensive white matter disease as was seen on her stat head CT. Her very large left occipital stroke is also evident on CT of the head from 09/01. The patient will with knowledge that her memory is not as good as it used to be. She lives with her son but she says he has water on the brain and no insurance to get it taken care of. She has a lot of family visiting from out of town and she wants to be discharged as soon as possible and is willing to do outpatient physical therapy. Review of Systems Narrative: She denied memory loss but when I tested her memory and found it not to be very good she acknowledged that her memory is not what it once was. Eyes: Reports: blurry vision (Her left eye feels irritated and she says there is something wrong with it); Denies: change in vision Card: Denies: chest pain or palpitations Resp: Denies: dyspnea GI: Denies: vomiting or dysphagia Neuro: Reports: numbness in extremities, weakness in extremities (She feels weak all over), lack of coordination, difficulty walking, dizziness and confusion; Denies: headache(s), frequent falls, vertigo or Slurred speech present Psych: Denies: anxiety or depression Medications/Allergies Home Medications ?Medication ?Instructions ?Recorded ?Confirmed ?Last Taken ?Type lancets 30 gauge #100 ea 05/20/24 09/02/25 Unknown Rx pen needle, diabetic 31 gauge x #1,200 ea 02/02/25 09/02/25 Unknown Rx 3/16 (TRUEplus Pen Needle) insulin aspart U-100 100 unit/mL See Rx Instructions SUBCUT TID #15 03/23/25 09/02/25 09/01/25 Rx (3 mL) subcutaneous pen (Novolog mL FlexPen U-100 Insulin aspart) potassium chloride 10 mEq See Rx Instructions .Route 04/16/25 09/02/25 09/01/25 Rx capsule,extended release .COMPLEX #60 caps ergocalciferol (vitamin D2) 1,250 See Rx Instructions .Route 04/26/25 09/02/25 08/27/25 Rx mcg (50,000 unit) capsule .COMPLEX #12 caps metoprolol succinate 50 mg See Rx Instructions .Route 05/28/25 09/02/25 09/01/25 Rx tablet,extended release 24 hr .COMPLEX #30 tabs triamterene 37.5 See Rx Instructions .Route 06/18/25 09/02/25 09/01/25 Rx mg-hydrochlorothiazide 25 mg tablet .COMPLEX #30 tabs blood-glucose sensor (FreeStyle #1 ea 07/27/25 09/02/25 Unknown Rx Moe 3 Plus Sensor device) bumetanide 1 mg tablet 1 mg PO .COMPLEX #60 tabs 08/05/25 09/02/25 09/02/25 Rx nortriptyline 10 mg capsule 10 mg PO .qhs #30 caps 08/05/25 09/02/25 08/31/25 Rx insulin glargine 100 unit/mL (3 15 unit (0.15 mL) SUBCUT QAM #3 mL 08/19/25 09/02/25 09/01/25 Rx mL) subcutaneous pen (Lantus Solostar U-100 Insulin) Allergies Allergy/AdvReac Type Severity Reaction Status Date / Time No Known Allergies Allergy Verified 08/19/25 10:59 Current Medications Generic Name Dose Route Start Last Admin Trade Name Freq PRN Reason Stop Dose Admin Acetaminophen 650 mg 09/02/25 23:18 09/02/25 23:28 Acetaminophen 325 Mg Tablet PO 650 mg Q6H PRN Administration MILD PAIN Sodium Chloride 1,000 mls @ 75 mls/hr 09/02/25 14:30 09/03/25 06:03 Sodium Chloride 0.9% IV 75 mls/hr .[id number] JOHANNA Administration Insulin Human Lispro 0 unit 09/02/25 08:00 09/03/25 12:09 Insulin Lispro 100 Unit/1 Ml SUBCUT 14 unit WM&BEDTIME JOHANNA Administration Protocol Metoprolol Succinate 50 mg 09/02/25 05:00 09/03/25 04:13 Metoprolol Succinate Er (24 Hr) 50 Mg Tablet PO 50 mg DAILY JOHANNA Administration Nortriptyline HCl 10 mg 09/02/25 21:00 09/02/25 20:12 Nortriptyline 10 Mg Capsule PO 10 mg BEDTIME JOHANNA Administration Prednisone 60 mg 09/02/25 09:00 09/03/25 04:13 Prednisone 20 Mg Tablet PO 60 mg DAILY JOHANNA Administration Valacyclovir HCl 1,000 mg 09/02/25 09:00 09/03/25 12:10 Valacyclovir 1,000 Mg Tablet PO 1,000 mg TID JOHANNA Administration PFSH Acute PFSH: Medical History Enrolled in chronic care management MVP (mitral valve prolapse) Headache Cerebrovascular accident Atrial fibrillation Altered mental status Occipital stroke Type 2 diabetes mellitus Hyperlipemia Hypertension Social History Smoking and tobacco/nicotine status: never used tobacco/nicotine Alcohol intake: never Substance/Drug Use: never Marital status: / Vitals/I&O/Wt Last Vital Signs Temp 97.1 F L 09/03/25 11:52 Pulse 75 09/03/25 11:52 Resp 16 09/03/25 11:52 BP 150/69 09/03/25 11:52 Pulse Ox 94 09/03/25 11:52 O2 Del Method Room Air 09/03/25 04:00 09/03/25 09/03/25 09/03/25 06:59 14:59 22:59 Intake Total 1327.5 / 1580.0 480 / 480 Output Total 400 / 400 500 / 500 Balance 927.5 / 1180.0 -20 / -20 Weight last 48 hrs Weight 187 lb Weight 187 lb 4 oz Weight 187 lb 4 oz Physical Exam Narrative: GENERAL: Elderly woman in no distress MENTAL STATUS: She was accurate on the month but not the year, the date or the day of the week. She remembered 0 of 3 objects after brief distraction. She could not perform serial sevens past 93. She could not spell the word world backward although she could spell it forward. She is of above average intelligence and tends to distract the examiner during the history by bringing in extraneous information and not answering the questions. She is difficult to interview for this reason. CRANIAL NERVES: She has left homonymous hemianopsia. Extraocular movements were full with visual motor perseveration. She has severe left peripheral 7th nerve weakness. She cannot close the left eye. She is numb V1?V3 to pin and touch. Hearing was intact to soft spoken voice. Tongue and palate were midline when the cheek is withdrawn on the left. Shoulders were symmetric. MOTOR: She has diffuse motor weakness but nothing focal. SENSATION: She does not feel pin below the knees. Vibratory sensation absent below the knees. Markedly positive Romberg. COORDINATION: She cannot stand up without placing the feet wide apart and she has a izrt-en-ocix tremor. DEEP TENDON REFLEXES: Areflexic throughout. GAIT: She was able to stand at the bedside with her feet apart but when she puts her feet together she falls in any direction. HEENT: Conjunctiva not injected although the left eye is not closing NECK: Carotid upstroke was strong bilaterally without bruits. The thyroid was not enlarged and there were no palpable lymph nodes. CHEST: Clear to auscultation. CARDIOVASCULAR: The heart sounds were normal without murmur or gallop. Regular rate and rhythm. EXTREMITIES: No deformities. Data 09/03/25 14:35 09/03/25 14:35 Other Labs: Hemoglobin A1c 11.4 with random glucose 519. BUN and creatinine elevated 44/1.5. FINDINGS: Right common carotid artery: The right common carotid artery shows no evidence of significant stenosis. Right internal carotid artery: The right internal carotid artery shows no evidence of significant stenosis. Right external carotid artery: The right external carotid artery shows no evidence of significant stenosis. Left common carotid artery: The left common carotid artery is patent. No significant stenosis. Left internal carotid artery: The left internal carotid artery shows no evidence of significant stenosis. Left external carotid artery: The left external carotid artery shows no evidence of significant stenosis. Right vertebral artery: Mild narrowing of the right vertebral artery V2 segment due to degenerative disease of the cervical spine, otherwise patent. No high-grade stenosis or occlusion. No dissection. The right vertebral artery is dominant. Left vertebral artery: Left vertebral artery is patent. No significant stenosis. No evidence of dissection. Thyroid: The thyroid gland is heterogeneous. Soft tissues: Soft tissues are unremarkable as visualized. Bones/joints: There is a nonspecific reversal of the normal cervical lordosis. The cervical spine demonstrates marked degenerative changes at multiple levels. Lungs: Wethtawv-ld-ibxgwd emphysematous changes of the visualized lungs. CT/CT angio headneck* [id number] IMPRESSION: 1. 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 There is reconstitution of the distal left vertebral artery stump at the vertebrobasilar junction. 2. No additional high-grade stenosis or occlusion. IMPRESSION: 1. No high-grade stenosis or occlusion. 2. Ojuuzxnc-lp-xazfyo emphysematous changes of the visualized lungs. Other data: Echo 09/02/2025 Normal left ventricular size and systolic function, EF 72%.mild left ventricular hypertrophy. No regional wall motion abnormalities. Mildly increased left atrial size. Moderately increased left atrial volume 38 ml/m squared. Moderately increased right atrial size. Normal right ventricular size and systolic function. Echodensity in the RV apex, suggestive of moderator band. Thickened mitral valve. Moderate mitral annular calcification. Mild mitral valve regurgitation. Thickened aortic valve. Mild aortic valve calcification. Mild to moderate tricuspid valve regurgitation. Estimated pulmonary artery peak systolic pressure 36 mmHg. There is no pericardial effusion. There are no intracardiac masses. No similar previous studies are available for comparison Dr Hans Laughlin MD [facility] (Electronically Signed) Final Date: 02 September 2025 A&P Assessment and plan 1. Posterior circulation stroke: 84-year-old woman who presented with a peripheral left facial weakness and gait disorder suggestive of a posterior circulation stroke. I recommended hospitalizing her to stabilize her gait, obtain standard echocardiogram and laboratory studies and work toward rehabilitation. The fact that her MRI scan does not show a stroke does not rule out a small lesion in the brainstem. She also has significant dementia, which is a factor in trying to obtain a history from her. I think she is mildly to moderately demented based on my brief exam. Treatment indicated includes aspirin, Plavix for 3 weeks and Lipitor 40 mg daily. This would all have been included in the routine stroke orders. Her biggest risk factor for stroke at this time is her poorly controlled diabetes with severe hyperglycemia. Mari Birch has been working on this with her and got her hemoglobin A1c down to 11.2 from 17.7. The patient is not willing to have an inpatient rehabilitation stay but she is willing to go to outpatient physical therapy. She would like to go home today and I think that would be reasonable as she can walk with a walker. PDMP PDMP Reviewed: Not Reviewed Consult Attestations Medical Necessity Statement: Diagnosed with an acute stroke in the emergency department. Time Spent in Patient Care: 60 min Coding Level of Care Code 41561 Diagnoses Posterior circulation stroke I63.50
[2025-09-03 15:27] LABS: Glucose 519 mg/dL (65-115)
[2025-09-03 16:55] LABS: Vitamin B12 715 pg/mL (232-1245)
[2025-09-03] MEDS: insulin glargine 100 units/1 mL 20 UNIT SUBCUT (17:13)
[2025-09-04] VITALS: BP 116/76; PULSE 81; RESP 17; TEMP 36.4; O2SAT 93
[2025-09-04 04:00] VITALS: BP 156/79; PULSE 74; RESP 17; TEMP 36.7; O2SAT 93
[2025-09-04 04:20] LABS: Hematocrit 40.7 % (36-47); Hemoglobin 13.10 g/dL (11.27-16.99); Mean Corpuscular HGB Conc 32.2 g/dL (30-55); Mean Corpuscular Hemoglobin 28.9 pg (27-33); Mean Corpuscular Volume 89.8 fl (85-98); Nucleated Red Blood Cells % 0 %; Platelet Count 209 10^3/cmm (157-399); Red Blood Count 4.53 10^6/uL (3.85-5.65); White Blood Count 13.96 10^3/uL (3.29-11.43)
[2025-09-04 04:39] LABS: Anion Gap 13.0 (5-19); Blood Urea Nitrogen 39 mg/dL (8-23); Calcium 9.2 mg/dL (8.5-10.5); Carbon Dioxide 29 mmol/L (22-29); Chloride 95 mmol/L (98-107); Glucose 111 mg/dL (65-115); Osmolality Calculated 286 mOsm/kg (285-295); Potassium 4.0 mmol/L (3.5-5.1); Sodium 133 mmol/L (136-145)
[2025-09-04] MEDS: metoprolol succinate ER (24 HR) 50 mg Tablet PO (05:17)
[2025-09-04 05:50] VITALS: PULSE 70
[2025-09-04] MEDS: insulin glargine 100 units/1 mL 20 UNIT SUBCUT (06:45)
[2025-09-04 08:00] VITALS: BP 96/59; PULSE 92; RESP 15; TEMP 37.1; O2SAT 93
[2025-09-04 11:38] VITALS: BP 108/62; PULSE 82; RESP 17; TEMP 37; O2SAT 96
--- NOTE | 2025-09-04 12:19 | PC.CHAP ---
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 [] Patient/Family/Request visit [] Outpatient visit [] Follow-up visit [] Physician referral [] Code/Alert [x] Routine visit [] Staff referral [] Actively dying [] Patient sleeping [] Family support [] [] Out of room [] Palliative care [] [] Receiving care in room [] Pre-surgical visit [] Trauma [] Long length of stay [] ICU visit [] Other: Relational/Emotional Strength [x] Patient feels connected with others/family/visitors/staff [] Distress [] Loneliness/isolation [] Abandonment Spirituality of Patient [x] Person of Salma [x] Attends Zoroastrianism of their Salma [x] Believes in Prayer [x] Reads Bible or Mormon materials [] There are Spiritual issues to be addressed Pipe Bender Interventions [x] Prayer [x] Active listening [x] Non-anxious presence [x] Spiritual/emotional support [] Crisis/trauma care [] Spiritual counseling [] Bereavement support [] Provided bereavement packet [] Provided Bible/devotional materials [] Provided toy/stuffed animal, coloring book to patient or family member [] Provided Communion [] Anointing/Thompson [] Salvation [] Completed spiritual assessment [] Other: Impact on Illness or Injury [] Angry [] Fearful [] Anxious [] Often cries [] Exhaustion [] Unable to work [] Unable to attend faith [] Unable to walk/stand [] Unable to read [] Unable to drive [] Unable to eat/drink [] Unable to sleep [] Unable to be with family [] Patient intubated [] Other: Summary Time spent with patient 45 min
[2025-09-04 14:09] VITALS: BP 108/62; PULSE 82; RESP 17; TEMP 37; O2SAT 96
--- NOTE | 2025-09-04 14:45 | P.DS_ITS ---
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 Cerebral atrophy: 4. Cerebrovascular disease: 5. Type 2 diabetes mellitus: Reason for Visit Reason for Visit: AMS Brief History: Patient presented to the emergency room with left facial droop and altered mental status. Hospital Course Hospital Course Patient was admitted for possible stroke. Patient had an MRI that showed no acute stroke. However it showed cerebral atrophy significant cerebrovascular disease old left [place]AD[place] infarct as well as multiple left cerebellar infarct. Clinically the left facial droop includes the forehead and thus it is a Thomas's palsy. She is treated with prednisone 60 mg daily and valacyclovir. These are to be continued for a total of 7 days. Patient was noted to have a hemoglobin A1c of 11. Her long-acting insulin was markedly increased from 15 units once a day to 20 units twice a day. This will continue even with the discontinuation of steroids. The patient is having some instability walking which is new since there is no acute stroke it could be a stroke mimic from her previous cerebellar strokes. Patient and son and son-in-law were educated on this and I am hopeful that this will get better as she improves. They are agreeable to home health services for RN and PT. Physical Exam Narrative: Alert elderly female in no acute distress. No neuro left upper and lower face palsy. Unable to close her left eye. Upper and lower extremities are equal strength bilaterally with normal sensation No other focal deficit Heart regular normal S1-S2 without murmurs clicks gallops or rubs Lungs clear to auscultation without wheezes rales or rhonchi Abdomen soft nontender nondistended positive bowel sound Extremities no clubbing cyanosis or edema Discharge Data Studies Completed and Pending Completed Studies During Hospitalization Category Date Time Status CT angio headneck* [id number] Stat Cat Scan 09/01/25 22:[address] head thrombolytic 16424 Stat Cat Scan 09/01/25 22:57 Completed MR head wo con* [id number] Routine MRI 09/02/25 14:17 Completed CV. echo complete* [id number] Routine Ultrasound 09/02/25 03:26 Completed Pending at discharge Category Date Time Status BMP [Basic Metabolic Panel] AM LABS Lab 09/05/25 04:00 Ordered BMP [Basic Metabolic Panel] AM LABS Lab 09/06/25 04:00 Ordered CBC Auto Diff [Complete Blood Count w/Auto] AM LABS Lab 09/05/25 04:00 Ordered CBC Auto Diff [Complete Blood Count w/Auto] AM LABS Lab 09/06/25 04:00 Ordered Radiology Impressions Head CT 09/01/25 22:57 IMPRESSION: No acute intracranial findings. ASSESSMENT: ASPECTS (Tanika Stroke Program Early CT Score) is 10. ADDENDUM: 09/01/25 [id number] COMMENT: THIS REPORT CONTAINS FINDINGS THAT MAY BE CRITICAL TO PATIENT CARE. The exam findings were verbally communicated by me to Abdi Menjivar via telephone conference at 11:26 PM [facility] on 09/01/2025. The findings were acknowledged and understood. Head/Neck CTA 09/01/25 22:57 IMPRESSION: 1. 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 There is reconstitution of the distal left vertebral artery stump at the vertebrobasilar junction. 2. No additional high-grade stenosis or occlusion. IMPRESSION: 1. No high-grade stenosis or occlusion. 2. Myrebbvz-ol-[id number] emphysematous changes of the visualized lungs. REFERENCES: NASCET CRITERIA. The degree of stenosis in the cervical segment of the internal carotid artery is based on NASCET criteria. Normal is no stenosis. Mild is less than 50% stenosis. Moderate is 50-69% stenosis. Severe is 70% to 99% stenosis. Total occlusion is no detectable patent lumen. Head MRI 09/02/25 14:17 IMPRESSION: 1. No mass, edema, hemorrhage, or evidence for acute ischemia. 2. Chronic left [place] territory infarct. 3. Multiple chronic left cerebellar lacunar infarcts. 4. Extensive chronic microvascular ischemic changes and generalized cerebral volume loss. Laboratory Results WBC 13.96 10^3/uL (3.29-11.43) H 09/04/25 03:50 RBC 4.53 10^6/uL (3.85-5.65) 09/04/25 03:50 Hgb 13.10 g/dL (11.27-16.99) 09/04/25 03:50 Hct 40.7 % (36-47) 09/04/25 03:50 MCV 89.8 fl (85-98) 09/04/25 03:50 MCH 28.9 pg (27-33) 09/04/25 03:50 MCHC 32.2 g/dL (30-55) 09/04/25 03:50 RDW 12.8 % (12.1-15.1) 09/04/25 03:50 Plt Count 209 10^3/cmm (157-399) 09/04/25 03:50 MPV 9.5 fL (7.4-10.4) 09/04/25 03:50 Neut % (Auto) 76.4 % 09/04/25 03:50 Lymph % (Auto) 16.0 % 09/04/25 03:50 Riley % (Auto) 5.9 % 09/04/25 03:50 Eos % (Auto) 0.9 % 09/04/25 03:50 Baso % (Auto) 0.4 % 09/04/25 03:50 Neut # (Auto) 10.66 10^3/uL (1.8-7.7) H 09/04/25 03:50 Lymph # (Auto) 2.2 10^3/uL (0.8-4.8) 09/04/25 03:50 Riley # (Auto) 0.8 10^3/uL (0.2-0.9) 09/04/25 03:50 Eos # (Auto) 0.1 10^3/uL (0.0-0.8) 09/04/25 03:50 Baso # (Auto) 0.1 10^3/uL (0.0-0.1) 09/04/25 03:50 Nucleated RBC % (auto) 0 % 09/04/25 03:50 Total Counted 100 (0-100) 09/02/25 00:57 Atypical Lymphs % 7.0 % (0-5) H 09/02/25 00:57 Segmented Neutrophils 52 % 09/02/25 00:57 Band Neutrophils Not Reportable 09/02/25 00:57 Absolute Lymphocytes 2.0 10^3/cmm (1.2-3.4) 09/02/25 00:57 Lymphocytes (Manual) 20 % 09/02/25 00:57 Monocytes (Manual) 11.0 % 09/02/25 00:57 Absolute Monocytes 0.8 10^3/cmm (0.1-0.6) H 09/02/25 00:57 Eosinophils (Manual) 10 % 09/02/25 00:57 Absolute Eosinophils 0.7 10^3/cmm (0.0-0.7) 09/02/25 00:57 Basophils (Manual) 0.0 % 09/02/25 00:57 Absolute Basophils 0.0 10^3/cmm (0.0-0.2) 09/02/25 00:57 Nucleated RBCs # 0.0 /100WBC 09/04/25 03:50 Platelet Estimate Normal (Normal) 09/02/25 00:57 PT 14.20 SECONDS (12.1-14.9) 09/02/25 00:57 INR 1.03 (0.8-1.2) 09/02/25 00:57 APTT 25.5 SECONDS (23.9-36.7) 09/02/25 00:57 Sodium 133 mmol/L (136-145) L 09/04/25 03:50 Potassium 4.0 mmol/L (3.5-5.1) 09/04/25 03:50 Chloride 95 mmol/L (98-107) L 09/04/25 03:50 Carbon Dioxide 29 mmol/L (22-29) 09/04/25 03:50 Anion Gap 13.0 (5-19) 09/04/25 03:50 BUN 39 mg/dL (8-23) H 09/04/25 03:50 Creatinine 1.1 mg/dL (0.5-0.9) H 09/04/25 03:50 GFR Calculation Not Reportable 09/04/25 03:50 Glucose 111 mg/dL (65-115) 09/04/25 03:50 POC Glucose 189 mg/dL (70-110) H 09/04/25 11:27 Estimat Average Glucose 280 09/03/25 05:32 Hemoglobin A1c 11.4 % (4.0-6.0) H 09/03/25 05:32 Calculated Osmolality 286 mOsm/kg (285-295) 09/04/25 03:50 Calcium 9.2 mg/dL (8.5-10.5) 09/04/25 03:50 Magnesium 2.3 mg/dL (1.7-2.3) 09/02/25 00:57 Total Bilirubin 0.6 mg/dL (0.15-1.2) 09/02/25 00:57 AST 18 U/L (0-32) 09/02/25 00:57 ALT 17 U/L (0-33) 09/02/25 00:57 Alkaline Phosphatase 101 U/L (35-105) 09/02/25 00:57 Total Protein 7.3 g/dL (6.6-8.7) 09/02/25 00:57 Albumin 3.5 g/dL (3.5-5.2) 09/02/25 00:57 Globulin 3.8 g/dL (1.3-4.6) 09/02/25 00:57 Triglycerides 98 mg/dL (0-150) 09/03/25 05:32 Cholesterol 111 mg/dL (0-200) 09/03/25 05:32 LDL Cholesterol, Calc 64 mg/dL (50-129) 09/03/25 05:32 HDL Cholesterol 27 mg/dL (60-100) L 09/03/25 05:32 LDL/HDL Ratio 2.37 RATIO (0.00-3.22) 09/03/25 05:32 Cholesterol/HDL Ratio 4.11 mg/dL (0.0-4.40) 09/03/25 05:32 Vitamin B12 715 pg/mL (232-1245) 09/03/25 05:32 Folate 11.7 ng/mL (4.8-37.3) 09/03/25 05:32 Urine Color Yellow (Yellow) 09/02/25 00:12 Urine Appearance Clear (CLEAR) 09/02/25 00:12 Urine pH 6.0 (5-7) 09/02/25 00:12 Ur Specific [place] 1.012 (1.005-1.030) 09/02/25 00:12 Urine Protein Negative (Negative) 09/02/25 00:12 Urine Glucose (UA) Trace (Normal) H 09/02/25 00:12 Urine Ketones Negative (Negative) 09/02/25 00:12 Urine Blood Negative (Negative) 09/02/25 00:12 Urine Nitrate Negative (Negative) 09/02/25 00:12 Urine Bilirubin Negative (Negative) 09/02/25 00:12 Urine Urobilinogen 0.2 mg/dL (Negative) 09/02/25 00:12 Ur Leukocyte Esterase Negative (Negative) 09/02/25 00:12 Urine RBC 0-2 /hpf (0-2) 09/02/25 00:12 Urine WBC 0-5 /hpf (0-5) 09/02/25 00:12 Ur Squamous Epith Cells 0-5 /hpf (0-5) 09/02/25 00:12 Amorphous Sediment Not Reportable 09/02/25 00:12 Urine Bacteria None seen /hpf (NONE) 09/02/25 00:12 Hyaline Casts 2.87 /lpf 09/02/25 00:12 Urine Opiates Screen Negative ng/mL (Negative) 09/02/25 00:12 Ur Barbiturates Screen Negative ng/mL (Negative) 09/02/25 00:12 Ur Phencyclidine Scrn Negative ng/mL (Negative) 09/02/25 00:12 Ur Amphetamines Screen Negative ng/mL (Negative) 09/02/25 00:12 U Benzodiazepines Scrn Negative ng/mL (Negative) 09/02/25 00:12 Urine Cocaine Screen Negative ng/mL (Negative) 09/02/25 00:12 U Marijuana (THC) Screen Negative ng/mL (Negative) 09/02/25 00:12 Vitals Last Vital Signs Temp 98.6 F 09/04/25 14:09 Pulse 82 09/04/25 14:09 Resp 17 09/04/25 14:09 BP 108/62 09/04/25 14:09 Pulse Ox 96 09/04/25 14:09 O2 Del Method Room Air 09/04/25 11:38 Discharge Plan Discharge Patient Disposition: Home Condition: Stable Prescriptions: New valacyclovir 1 gram Tablet 1,000 mg PO TID Qty: 12 0RF prednisone 20 mg Tablet 60 mg PO DAILY Qty: 12 0RF Continued potassium chloride 10 mEq capsule, extended release See Rx Instructions .ROUTE .COMPLEX Qty: 60 2RF Dose Instruction: TAKE TWO CAPSULES BY MOUTH DAILY Rx Instructions: TAKE TWO CAPSULES BY MOUTH DAILY nortriptyline 10 mg capsule 10 mg PO .qhs Qty: 30 0RF (DME) lancets 30 gauge misc See Rx Instructions .Route Qty: 100 1RF Rx Instructions: As directed (DME) pen needle, diabetic [TRUEplus Pen Needle] 31 gauge x 3/16 needle See Rx Instructions .Route Qty: 1200 0RF Rx Instructions: test 4 times a day insulin aspart U-100 [Novolog FlexPen U-100 Insulin] 100 unit/mL (3 mL) insulin pen See Rx Instructions SUBCUT TID Qty: 15 3RF Rx Instructions: check blood sugar before meals TID and administer per sliding scale subcutaneously 150-200: 3 units 201-250: 5 units 251-300: 7 units 301-350: 9 units 351 or higher: 11 units ergocalciferol (vitamin D2) 1,250 mcg (50,000 unit) capsule See Rx Instructions .ROUTE .COMPLEX Qty: 12 0RF Dose Instruction: TAKE ONE CAPSULE BY MOUTH ONCE a WEEK Rx Instructions: TAKE ONE CAPSULE BY MOUTH ONCE WEEKLY ON SATURDAY. metoprolol succinate 50 mg tablet extended release 24 hr See Rx Instructions .ROUTE .COMPLEX Qty: 30 0RF Dose Instruction: TAKE 1 TABLET BY MOUTH DAILY Rx Instructions: TAKE 1 TABLET BY MOUTH DAILY (DME) FreeStyle Moe 3 Plus Sensor Device See Rx Instructions .ROUTE .COMPLEX Qty: 1 12RF Dose Instruction: USE as directed TO check blood sugar FOUR TIMES DAILY and NEEDED Rx Instructions: USE as directed TO check blood sugar FOUR TIMES DAILY and NEEDED Changed bumetanide 1 mg tablet 1 mg PO DAILY Qty: 60 2RF Rx Instructions: Take 1 tablet by mouth twice daily. insulin glargine [Lantus Solostar U-100 Insulin] 100 unit/mL (3 mL) insulin pen 15 unit SUBCUT BID Qty: 3 3RF Discontinued triamterene-hydrochlorothiazid 37.5-25 mg tablet See Rx Instructions .ROUTE .COMPLEX Qty: 30 2RF Dose Instruction: TAKE 1 TABLET BY MOUTH EVERY MORNING Rx Instructions: TAKE 1 TABLET BY MOUTH EVERY MORNING Discharge Order = DC NOW: Discharge Order (Routine); Ordered 09/04/25 Ordered By: Meir Thurman Referrals: Mari Birch FNP [Primary Care Provider, Family Practice] - 09/10/25 1:20 pm Referral Note: Discharge Diet: Diabetic Discharge Activity: Increase activity as tolerated and Use walker/crutches as instructed Patient Instructions: Prednisone (By mouth), Valacyclovir (By mouth), Thomas Palsy (DC), Ischemic Stroke (DC), Patient Portal & Damir Instructions Activity Restrictions/Additional Instructions: Regarding your diabetes the steroidsu are definitely causing elevated blood sugars. However your new home dose of Lantus will be increased to 15 units twice a day instead of once a day. Your hemoglobin A1c which is a measurement of blood sugar over the past 3 months is 11 which is markedly elevated and goal would be less than 8. Please continue the prednisone for more days as well as the valacyclovir. Decrease Bumex from twice a day to once a day and discontinue triamterene hydrochlorothiazide Please obtain eyepatch for the left eye to cover at night and use eyedrops every few hours while awake Discharge Attestations Time Spent in Discharge Care*: greater than 30 min Quality Metrics Clinical Quality Measures [ No reported AMI, CVA or VTE this stay] Coding Level of Care Code Acute Code for Chg Fwd Diagnoses Thomas's palsy G51.0 History of stroke without residual deficits Z86.73 Cerebral atrophy G31.9 Cerebrovascular disease I67.9 Type 2 diabetes mellitus E11.9
== END 2025-09-04 14:48 | disposition home health service (06) | DRG 65 ==
LOC: ER 09-02 02:57 → ER IP 09-02 07:00 → MEDSURG 09-02 12:23
PROVIDERS: Internal Medicine; Specialist; Admitting Provider Family Medicine; Emergency Provider Student in an Organized Health Care Education/Training Program; PCP Nurse Practitioner Family; Visit Provider Internal Medicine
DX: I63.50 Cerebral infarction due to unspecified occlusion or stenosis of unspecified cerebral artery (principal); E87.1 Hypo-osmolality and hyponatremia; N17.9 Acute kidney failure, unspecified; R29.810 Facial weakness; R26.0 Ataxic gait; G51.0 Bell's palsy; G31.9 Degenerative disease of nervous system, unspecified; F02.B0 Dementia in other diseases classified elsewhere, moderate, without behavioral disturbance, psychotic disturbance, mood disturbance, and anxiety; E11.42 Type 2 diabetes mellitus with diabetic polyneuropathy; I67.9 Cerebrovascular disease, unspecified; Z79.4 Long term (current) use of insulin; I10 Essential (primary) hypertension; I34.1 Nonrheumatic mitral (valve) prolapse; I48.91 Unspecified atrial fibrillation; E78.5 Hyperlipidemia, unspecified; E87.6 Hypokalemia; L81.8 Other specified disorders of pigmentation; Z86.73 Personal history of transient ischemic attack (TIA), and cerebral infarction without residual deficits
CPT/HCPCS: 36415; 36416; 70450; 70496; 70498; 70551; 80048; 80053; 80061; 80306; 81001; 82607; 82746; 82962; 83036; 83735; 85007; 85025; 85610; 85730; 92507; 92523; 92526; 92610; 93005; 93306; 96360; 96361; 96372; 97116; 97161; 97165; 99285; G0378; J1815; J7030; J7512; J9999